=== PATIENT | male | born 1950 | race Caucasian/White ===

== ENCOUNTER 2016-10-31 13:43 | Emergency (ER) | payer MEDICARE, BC ==
--- NOTE | 2016-10-31 13:51 | Emergency Department Record ---
History of Present Illness - General Chief Complaint: Suture removal Stated Complaint: REMOVE STITCHES Time Seen by Provider: 10/31/16 13:50 Source: Patient Mode of arrival: Ambulatory Limitations: No limitations - History of Present Illness Initial Comments: The patient is here for suture removal. He denies any problems. Complaint: Suture/staple removal Onset/Timin -: Week(s) Initial Visit For: Laceration Returns Today for: Staple/stitch removal Symptoms Since Prior Visit: No new symptoms Associated Symptoms: None - Related Data Home Medications Medication Instructions Recorded Confirmed Last Taken Carbidopa/Levodopa 25Mg/100Mg 2 tab PO Q2H 10/24/16 10/31/16 Unknown [Sinemet] Carbidopa/Levodopa [Sinemet Cr 2 tab PO QHS 10/24/16 10/31/16 Unknown 25-100 Tablet] Clonazepam [Clonazepam] 2 mg PO DAILY 10/24/16 10/31/16 Unknown Omeprazole [Prilosec] 20 mg PO DAILY 10/24/16 10/31/16 Unknown Oxybutynin Chloride [Ditropan] 5 mg PO BID 10/24/16 10/31/16 Unknown Allergies Allergy/AdvReac Type Severity Reaction Status Date / Time bupropion HCl Allergy HIVES Verified 10/31/16 13:51 [From Wellbutrin] Travel Screening - Travel/Exposure Within Last 30 Days Have you traveled within the last 30 days?: No Past Medical History - SOCIAL HISTORY Smoking Status: Never smoker Alcohol Use: None Drug Use: None - RESPIRATORY Hx Respiratory Disorders: No - CARDIOVASCULAR Hx Cardio Disorders: No - NEURO Hx Neuro Disorders: Yes Hx Parkinson's Disease: Yes - GI Hx GI Disorders: Yes Hx Reflux: Yes Hx of Polyps: Yes - Hx Genitourinary Disorders: No - ENDOCRINE Hx Endocrine Disorders: No - MUSCULOSKELETAL Hx Musculoskeletal Disorders: Yes Comment:: hip pain/problems - PSYCH Hx Psych Problems: Yes Hx Depression: Yes (d/t Parkinon's) - HEMATOLOGY/ONCOLOGY Hx Hematology/Oncology Disorders: No Family Medical History Any Significant Family History?: Yes Hx Heart Disease: Father Hx HTN: Mother Physical Exam - General General Appearance: Alert, Oriented x3, Cooperative, No acute distress - Head Head exam: negative: Atraumatic (The R forehead sutures were removed with no difficulty.) Course Vital Signs 10/31/16 13:47 Temperature 97.5 F L Pulse Rate 69 Respiratory 18 Rate Blood Pressure 118/66 Pulse Ox 96 Disposition Disposition: Discharge Clinical Impression: Visit for suture removal Disposition: Home, Self-Care Condition: (1) Good Instructions: Stitches Removal (ED) Additional Instructions: Return to the ER for any problems. Forms: Patient Portal Access Time of Disposition: 14:00 Quality - Quality Measures Quality Measures: N/A - Blood Pressure Screening View Details: Yes Blood Pressure Classification: Normal BP Reading Systolic Measurement: 118 Diastolic Measurement: 66 Screening for High Blood Pressure: < Normal BP, F/U Not Required > [G8783] Normal BP Follow-up Interventions: No follow-up required
== END 2016-10-31 14:11 | disposition home or self-care (01) ==
LOC: ER 13:43
DX: Z48.02 Encounter for removal of sutures (principal)

== ENCOUNTER 2017-04-03 11:52 | Emergency (ER) | payer MEDICARE, OTHER ==
[2017-04-03] MEDS ORDERED: 0.9 % SODIUM CHLORIDE 1,000 ML BAG IV ONE (12:09)
--- NOTE | 2017-04-03 12:23 | Emergency Department Record ---
History of Present Illness - General Chief complaint: Male Urogenital Problem Stated complaint: UTI Time Seen by Provider: 04/03/17 12:06 Source: Patient, RN notes reviewed Mode of Arrival: Wheelchair - History of Present Illness Initial comments: decreased level of consciousness and [facility] and [facility] thought [facility] might be a [facility] and recommended he go to the ED. patient lethargic and has severe parkinson's disease and on synimet 1.5 pills every 2.5 hours and he stopped his night time synemet CR about one month ago. patient lethargic and wakes up with loud verbal commands and he stood up and got out of the car. Onset/Timin -: Days(s) Improves with: None Worsens with: None Other - Related Data Sexually active: No Allergies Allergy/AdvReac Type Severity Reaction Status Date / Time bupropion HCl Allergy HIVES Verified 04/03/17 11:56 [From Wellbutrin] Travel Screening - Travel/Exposure Within Last 30 Days Have you traveled within the last 30 days?: No - Travel/Exposure Within Last Year Have you traveled outside the [place] in the last year?: No - Additonal Travel Details Have you been exposed to anyone with a communicable illness?: No - Travel Symptoms Symptom Screening: None Review of Systems Reviewed: No additional complaints except as noted below Constitutional: Reports: As per HPI. Denies: Chills, Fever, Malaise, Night sweats, Weakness, Weight change Eyes: Reports: As per HPI. Denies: Eye discharge, Eye pain, Photophobia, Vision change ENT: Reports: As per HPI. Denies: Congestion, Dental pain, Ear pain, Epistaxis , Hearing loss, Throat pain Respiratory: Reports: As per HPI. Denies: Cough, Dyspnea, Hemoptysis, Stridor, Wheezes Cardiovascular: Reports: As per HPI. Denies: Arrhythmia, Chest pain, Dyspnea on exertion, Edema, Murmurs, Orthopnea, Palpitations, Paroxysmal nocturnal dyspnea, Rheumatic Fever, Syncope Endocrine: Reports: As per HPI. Denies: Fatigue, Heat or cold intolerance, Polydipsia, Polyuria Gastrointestinal: Reports: As per HPI. Denies: Abdominal pain, Constipation, Diarrhea, Hematemesis, Hematochezia, Melena, Nausea, Vomiting Genitourinary: Reports: As per HPI. Denies: Dysuria, Frequency, Hematuria, Incontinence, Retention, Testicular pain, Testicular mass, Urgency Musculoskeletal: Reports: As per HPI. Denies: Arthralgia, Back pain, Gout, Joint swelling, Myalgia, Neck pain Skin: Reports: As per HPI. Denies: Bruising, Change in color, Change in hair/ nails, Lesions, Pruritus, Rash Neurological: Reports: As per HPI. Denies: Abnormal gait, Confusion, Headache, Numbness, Paresthesias, Seizure, Tingling, Tremors, Vertigo, Weakness Psychiatric: Reports: As per HPI. Denies: Anxiety, Auditory hallucinations, Depression, Homicidal thoughts, Suicidal thoughts, Visual hallucinations Hematological/Lymphatic: Reports: As per HPI. Denies: Anemia, Blood Clots, Easy bleeding, Easy bruising, Swollen glands Past Medical History - SOCIAL HISTORY Smoking Status: Never smoker Alcohol Use: None Drug Use: None - RESPIRATORY Hx Respiratory Disorders: No - CARDIOVASCULAR Hx Cardio Disorders: No - NEURO Hx Neuro Disorders: Yes Hx Parkinson's Disease: Yes - GI Hx GI Disorders: Yes Hx Reflux: Yes Hx of Polyps: Yes - Hx Genitourinary Disorders: No - ENDOCRINE Hx Endocrine Disorders: No - MUSCULOSKELETAL Hx Musculoskeletal Disorders: Yes Comment:: hip pain/problems - PSYCH Hx Psych Problems: Yes Hx Depression: Yes (d/t Parkinon's) - HEMATOLOGY/ONCOLOGY Hx Hematology/Oncology Disorders: No Family Medical History Any Significant Family History?: Yes Hx Heart Disease: Father Hx HTN: Mother Physical Exam - General General Appearance: Alert, Oriented x3, Cooperative, Moderate distress - Head Head exam: Normal inspection - Eye Eye exam: Normal appearance, PERRL Pupils: Normal accommodation - ENT ENT exam: Normal external ear exam, Normal orophraynx, TM's normal bilaterally Ear exam: Normal external inspection. negative: External canal tenderness Nasal Exam: Normal inspection. negative: Discharge, Sinus tenderness Mouth exam: Normal external inspection, Tongue normal Teeth exam: Normal inspection. negative: Dental caries Throat exam: Normal inspection. negative: Tonsillar erythema, Tonsillar exudate - Neck Neck exam: Normal inspection, Full ROM. negative: Tenderness - Respiratory Respiratory exam: Normal lung sounds bilaterally. negative: Respiratory distress - Cardiovascular Cardiovascular Exam: Regular rate, Normal rhythm, Normal heart sounds - GI/Abdominal GI/Abdominal exam: Soft, Normal bowel sounds. negative: Tenderness - Rectal Rectal exam: Deferred - exam: Deferred - Extremities Extremities exam: Normal inspection, Full ROM, Normal capillary refill. negative: Tenderness - Back Back exam: Reports: Normal inspection, Full ROM. Denies: Muscle spasm, Rash noted, Tenderness - Neurological Neurological exam: Alert, Normal gait, Oriented X3, Reflexes normal - Psychiatric Psychiatric exam: Normal affect, Normal mood - Skin Skin exam: Dry, Intact, Normal color, Warm Course Vital Signs 04/03/17 11:58 Temperature 97.5 F L Pulse Rate 72 Respiratory 16 Rate Blood Pressure 125/58 Pulse Ox 98 - Reevaluation(s) Reevaluation #1: patient doing better and talking and back to his baseline per and talked about staying vs going home and will try outpatient therapy with increased fluid and giving the synimet every 4 hours and decreasing the nighttime klonapin to 1 mg at night 04/03/17 16:01 Reevaluation #2: patient is a DNR 04/03/17 16:09 Medical Decision Making - Lab Data Result diagrams: 04/03/17 12:35 04/03/17 12:35 Disposition Clinical Impression: Decreased level of consciousness, Parkinson disease, Dehydration Medication side effect Qualifiers: Encounter type: initial encounter Qualified Code(s): T88.7XXA - Unspecified adverse effect of drug or medicament, initial encounter Clinical Impression: (Ruled Out): Adverse reaction of antiepileptic Disposition: Home, Self-Care Condition: (2) Stable Instructions: Dehydration (ED) Additional Instructions: take sinemet every 4 hours and take only 1 mg of klonopin at night(one half of a 2 mg pill). drink more fluids Forms: Patient Portal Access Time of Disposition: 16:10 Quality - Quality Measures Quality Measures: N/A - Blood Pressure Screening Does Patient Have Any of the Following: No Blood Pressure Classification: Pre-Hypertensive BP Reading Systolic Measurement: 125 Diastolic Measurement: 58 Screening for High Blood Pressure: < Pre-Hypertensive BP, F/U Documented > [ G8950] Pre-Hypertensive Follow-up Interventions: Referral to alternative/primary care provider.
[2017-04-03 12:45] LABS: BASO % 0.2 % (0-6); EOS % 1.2 % (0-6); GRAN % 55.9 % (47-80); HEMOGLOBIN 15.8 gm/dl (14.0-18.0); LYMPH % 31.8 % (16-45); MEAN CELL VOLUME 98.9 fl (81-97); MEAN CORPUSCULAR HEMOGLOBIN 33.3 pg (27-33); MEAN CORPUSCULAR HGB CONC 33.6 g/dl (32-36); MEAN PLATELET VOLUME 9.7 fl (7.4-10.4); MONO % 10.9 % (0-9); PLATELET COUNT 225 K/uL (130-400); RED BLOOD COUNT 4.75 M/uL (4.40-5.70); RED CELL DISTRIBUTION WIDTH 13.4 % (11.5-14.5); WHITE BLOOD COUNT W/O DIFF 5.2 K/uL (4.2-12.2)
[2017-04-03 13:37] LABS: INR 1.14; PARTIAL THROMBOPLASTIN TIME 27.3 SECONDS (24.5-39.1); PROTHROMBIN TIME (PATIENT) 12.3 SECONDS (9.5-12.1)
[2017-04-03 13:37] LABS: URINE APPEARANCE CLEAR; URINE BILIRUBIN NEGATIVE (NEGATIVE); URINE BLOOD TRACE-I (NEGATIVE); URINE COLOR ORANGE; URINE GLUCOSE (UA) NEGATIVE (NEGATIVE); URINE KETONE TRACE (NEGATIVE); URINE LEUKOCYTE ESTERASE NEGATIVE (NEGATIVE); URINE NITRITE NEGATIVE (NEGATIVE); URINE PROTEIN NEGATIVE (NEGATIVE); URINE UROBILINOGEN 0.2 E.U./dL (0.20 - 1.00)
[2017-04-03 13:39] LABS: URINE BACTERIA NONE SEEN; URINE EPITHELIAL CELLS 0 - 2 (FEW); URINE MUCUS LIGHT; URINE WBC 0 - 2 (0-2/hpf)
[2017-04-03 14:16] LABS: BLOOD UREA NITROGEN 19 mg/dL (8-23); CREATININE 0.8 mg/dL (0.7-1.2); EST GLOMERULAR FILTRATION RATE > 60 mL/min
[2017-04-03 14:17] LABS: TOTAL PROTEIN 7.1 g/dL (6.6-8.7)
[2017-04-03 14:18] LABS: GLUCOSE,RANDOM 97 mg/dL (74-109)
[2017-04-03 14:19] LABS: LACTIC ACID 1.3 mmol/L (0.5-2.2)
[2017-04-03 14:21] LABS: ALB/GLOB RATIO 1.5 (1.1-1.8); ALBUMIN 4.3 g/dL (4.0-5.0); ALKALINE PHOSPHATASE 55 U/L (40-129); ALT/SGPT < 5 U/L (<41); AST/SGOT 13 U/L (10.0-50.0)
[2017-04-03 14:33] LABS: ACETAMINOPHEN < 5.0 ug/mL (10.0-30.0)
--- NOTE | 2017-04-03 18:11 | RADIOLOGY REPORT ---
EXAM: CHEST AP or PA ONLY HISTORY: DIFFICULTY IN BREATHING. TECHNIQUE: A portable AP upright view of the chest was performed. FINDINGS: Heart size is normal. No pulmonary vascular congestion. No infiltrate or pleural effusion. IMPRESSION: NO ACUTE DISEASE PROCESS. JOB NUMBER: [id number] MTDD
--- NOTE | 2017-04-03 18:17 | CT SCAN REPORT ---
EXAM: CT SCAN HEAD WO CONTRAST HISTORY: DECREASED LEVEL OF CONSCIOUSNESS. TECHNIQUE: Sequential axial images were obtained from the foramen magnum to the vertex without contrast administration. FINDINGS: Age-appropriate cortical atrophy. There is periventricular small vessel ischemia. No large territorial infarct, hemorrhage, mass effect, or midline shift. Stimulator device in the thalamus. No complicating process. IMPRESSION: AGE-APPROPRIATE CORTICAL ATROPHY WITH PERIVENTRICULAR SMALL VESSEL ISCHEMIA. [facility]BER: [id number] [facility]
--- NOTE | 2017-04-03 18:21 | CT SCAN REPORT ---
EXAM: CT SCAN CERVICAL SPINE WO CONTRAST HISTORY: FALL. COMPARISON: 10/24/2016. TECHNIQUE: Sequential axial images were obtained through the cervical spine without intravenous contrast administration. Sagittal and coronal reformatted images were performed. FINDINGS: There is a remote mild superior endplate deformity of C3. There is degenerative change at the C5-6 and C6-7 levels. No evidence of acute fracture, subluxation, or perched facet. IMPRESSION: 1. NO ACUTE PROCESS. 2. MILD DEGENERATIVE CHANGE, MOST PRONOUNCED AT C5-6 AND C6-7 LEVELS. [facility]BER: [id number] [facility]
== END 2017-04-03 17:42 | disposition home or self-care (01) ==
LOC: ER 11:52
DX: T42.8X5A Adverse effect of antiparkinsonism drugs and other central muscle-tone depressants, initial encounter (principal); R41.82 Altered mental status, unspecified; E86.0 Dehydration; R53.83 Other fatigue; R06.00 Dyspnea, unspecified; G20 Parkinson's disease; M47.892 Other spondylosis, cervical region
CPT/HCPCS: 99284 ×2; 83605; 85025; 85730; 85610; 80053; 81001; 71010; 72125; 70450; G0480 ×2; 80320; 80329

== ENCOUNTER 2017-04-07 10:00 | Emergency (ER) | payer MEDICARE, OTHER ==
[2017-04-07] MEDS ORDERED: 0.9 % SODIUM CHLORIDE 1000ML 1,000 ML IV SCH (10:15)
--- NOTE | 2017-04-07 10:19 | Emergency Department Record ---
History of Present Illness - General Chief Complaint: Altered Mental Status Stated Complaint: ALTERED MENTAL STATE Time Seen by Provider: 04/07/17 10:13 Source: Family Mode of Arrival: Wheelchair Limitations: Altered mental status - History of Present Illness Initial Comments: 67 yo male returns to ED after being seen several days ago for worsening confusion and aggression this morning. Patient's SO reports the patient was seen 3 days ago, diagnosed with dehydration, symptoms improved following IVFs. Patient was doing well until last night, this morning was less responsive, found to be harming family cat and aggressive toward family members. Patient's Klonopin was recently decreased. MD Complaint: Altered mental status Onset/Timin -: Hour(s) Severity: Moderate Consistency: Constant Context: Change in medication Associated Symptoms: Denies other symptoms - Cr Coma Scale Eye Response: (4) Open spontaneously Motor Response: (5) Localizes to pain Verbal Response: (4) Confused conversation Cr Total: 13 - Related Data Allergies Allergy/AdvReac Type Severity Reaction Status Date / Time bupropion HCl Allergy HIVES Verified 04/07/17 10:05 [From Wellbutrin] Travel Screening - Travel/Exposure Within Last 30 Days Have you traveled within the last 30 days?: No Review of Systems ROS unobtainable: Due to mental status Neurological: Reports: Confusion Past Medical History - SOCIAL HISTORY Smoking Status: Never smoker Drug Use: None - RESPIRATORY Hx Respiratory Disorders: No - CARDIOVASCULAR Hx Cardio Disorders: No - NEURO Hx Neuro Disorders: Yes Hx Parkinson's Disease: Yes - GI Hx GI Disorders: Yes Hx Reflux: Yes Hx of Polyps: Yes - Hx Genitourinary Disorders: No - ENDOCRINE Hx Endocrine Disorders: No - MUSCULOSKELETAL Hx Musculoskeletal Disorders: Yes Comment:: hip pain/problems - PSYCH Hx Psych Problems: Yes Hx Depression: Yes (d/t Parkinon's) - HEMATOLOGY/ONCOLOGY Hx Hematology/Oncology Disorders: No Family Medical History Hx Heart Disease: Father Hx HTN: Mother Physical Exam - General General Appearance: Alert, Moderate distress, Other (patient is drooling, unable to stand, non-cooperative with examination) Limitations: Altered mental status - Head Head exam: Atraumatic, Normocephalic, Normal inspection Head exam detail: negative: Abrasion, Contusion, Martínez's sign, General tenderness, Hematoma, Laceration - Eye Eye exam: Normal appearance. negative: Conjunctival injection, Periorbital swelling, Periorbital tenderness, Scleral icterus - ENT Ear exam: negative: Auricular hematoma, Auricular trauma Nasal Exam: negative: Active bleeding, Discharge, Foreign body Mouth exam: negative: Drooling, Laceration, Tongue elevation - Neck Neck exam: Normal inspection. negative: Meningismus, Tenderness - Respiratory Respiratory exam: Normal lung sounds bilaterally. negative: Rales, Respiratory distress, Rhonchi - Cardiovascular Cardiovascular Exam: Regular rate, Normal rhythm, Normal heart sounds - GI/Abdominal GI/Abdominal exam: Soft. negative: Rebound, Rigid, Tenderness - Rectal Rectal exam: Deferred - exam: Deferred - Extremities Extremities exam: negative: Pedal edema, Tenderness - Back Back exam: Denies: CVA tenderness (R), CVA tenderness (L) - Neurological Neurological exam: Other (awake, does not respond to voice) - Psychiatric Psychiatric exam: Other (cannot assess) - Skin Skin exam: Normal color. negative: Abrasion Type of lesion: negative: abrasion Course - Reevaluation(s) Reevaluation #1: 04/07/17 11:15 CXR: Stable, no acute process. CT Head: Stable, no acute process. Labs reviewed and are grossly unremarkable for an acute process. UA/UDS pending. Reevaluation #2: 04/07/17 11:29 EKG: NSR 82 Normal axis, normal intervals No acute ST-T wave changes Reevaluation #3: 04/07/17 12:34 UA reviewed and appears c/w infection. Rocephin initiated, will transfer following discussion with admitting provider to [facility] for further evaluation. Medical Decision Making - Lab Data Result diagrams: 04/07/17 10:29 04/07/17 10:29 Disposition Disposition: Transfer Clinical Impression: Dehydration UTI (urinary tract infection) Qualifiers: Urinary tract infection type: acute cystitis Hematuria presence: without hematuria Qualified Code(s): N30.00 - Acute cystitis without hematuria Altered mental status Qualifiers: Altered mental status type: unspecified Qualified Code(s): R41.82 - Altered mental status, unspecified Disposition: Acute Care Hospital Transfer Transfer To: [facility] Reason For Transfer: Altered mental status Accepting Physician: Byam Time Discussed w/Accepting Physician: 13:00 Condition: (2) Stable Forms: Patient Portal Access Time of Disposition: 13:00 Quality - Quality Measures Quality Measures: N/A - Blood Pressure Screening Does Patient Have Any of the Following: No Blood Pressure Classification: Hypertensive Reading Systolic Measurement: 144 Diastolic Measurement: 73 Screening for High Blood Pressure: < First Hypertensive BP, F/U Documented > [ G8950] First Hypertensive Follow-up Interventions: Referral to alternative/primary care provider.
[2017-04-07 10:34] LABS: BASO % 0.3 % (0-6); EOS % 0.2 % (0-6); GRAN % 65.6 % (47-80); HEMATOCRIT 47.3 % (42.0-52.0); LYMPH % 22.7 % (16-45); MEAN CELL VOLUME 99.2 fl (81-97); MEAN CORPUSCULAR HEMOGLOBIN 33.5 pg (27-33); MEAN CORPUSCULAR HGB CONC 33.8 g/dl (32-36); MEAN PLATELET VOLUME 9.4 fl (7.4-10.4); MONO % 11.2 % (0-9); PLATELET COUNT 258 K/uL (130-400); RED BLOOD COUNT 4.77 M/uL (4.40-5.70); RED CELL DISTRIBUTION WIDTH 13.4 % (11.5-14.5); WHITE BLOOD COUNT W/O DIFF 6.3 K/uL (4.2-12.2)
[2017-04-07 10:52] LABS: ACETAMINOPHEN < 5.0 ug/mL (10.0-30.0); SALICYLATE < 0.3 mg/dL (2.8-20)
[2017-04-07 11:03] LABS: BLOOD UREA NITROGEN 23 mg/dL (8-23); CREATININE 0.9 mg/dL (0.7-1.2); EST GLOMERULAR FILTRATION RATE > 60 mL/min; TOTAL PROTEIN 7.4 g/dL (6.6-8.7)
[2017-04-07 11:05] LABS: GLUCOSE,RANDOM 102 mg/dL (74-109)
[2017-04-07 11:08] LABS: ALB/GLOB RATIO 1.5 (1.1-1.8); ALBUMIN 4.4 g/dL (4.0-5.0); ALKALINE PHOSPHATASE 55 U/L (40-129); ALT/SGPT < 5 U/L (<41); AST/SGOT 20 U/L (10.0-50.0)
[2017-04-07 11:11] LABS: AMMONIA 24 umol/L (16.0-60.0)
[2017-04-07 11:19] LABS: THYROID STIMULATING HORMONE 1.92 uIU/mL (0.270-4.20)
[2017-04-07] MEDS ORDERED: LIDOCAINE UROJECT 10 ML APPL MM ONE (11:47)
[2017-04-07 12:15] LABS: URINE APPEARANCE CLEAR; URINE BILIRUBIN NEGATIVE (NEGATIVE); URINE BLOOD NEGATIVE (NEGATIVE); URINE COLOR YELLOW; URINE GLUCOSE (UA) NEGATIVE (NEGATIVE); URINE KETONE TRACE (NEGATIVE); URINE LEUKOCYTE ESTERASE NEGATIVE (NEGATIVE); URINE NITRITE POSITIVE (NEGATIVE); URINE PROTEIN NEGATIVE (NEGATIVE); URINE UROBILINOGEN 0.2 E.U./dL (0.20 - 1.00)
[2017-04-07 12:19] LABS: AMPHETAMINE SCREEN URINE NOT DETECTED; BARBITURATE SCREEN URINE NOT DETECTED; BENZODIAZEPINE SCREEN URINE NOT DETECTED; COCAINE SCREEN URINE NOT DETECTED; METHADONE SCREEN URINE NOT DETECTED; METHAMPHETAMINE SCREEN NOT DETECTED; OPIATE SCREEN URINE NOT DETECTED; OXYCODONE SCREEN URINE NOT DETECTED; PHENCYCLIDINE SCREEN URINE NOT DETECTED; PROPOXYPHENE SCREEN URINE NOT DETECTED; THC SCREEN URINE NOT DETECTED; TRICYCLIC ANTIDEPRESSANT SCRN NOT DETECTED
[2017-04-07 12:22] LABS: URINE BACTERIA 2+; URINE EPITHELIAL CELLS NONE SEEN (FEW); URINE RBC NONE SEEN (NONE SEEN); URINE WBC 0 - 2 (0-2/hpf)
[2017-04-07] MEDS ORDERED: CEFTRIAXONE SODIUM 1 GM in 0.9 % SODIUM CHLORIDE 100ML 100 ML IVPB ONE (12:36)
--- NOTE | 2017-04-09 00:20 | RADIOLOGY REPORT ---
EXAM: CHEST 2 VIEWS HISTORY: DECREASED LEVEL OF CONSCIOUSNESS. CONFUSION AND ALTERED MENTAL STATUS. TECHNIQUE: AP and lateral upright views of the chest were obtained. COMPARISON: 04/03/2017. FINDINGS: An electrical stimulator device is present projecting over the left anterior chest. The leads extend into the neck region. The heart, mediastinum, and pulmonary vasculature are normal. There are no acute infiltrates or effusions. There is no pneumothorax. A calcified granuloma is present within the left mid lung. The bones appear intact. IMPRESSION: STABLE CHEST WITH NO ACUTE PROCESS IDENTIFIED. JOB NUMBER: [id number] MTDD
--- NOTE | 2017-04-09 00:25 | CT SCAN REPORT ---
EXAM: CT SCAN HEAD WO CONTRAST HISTORY: MENTAL STATUS CHANGES. CONFUSION AND DECREASED LEVEL OF CONSCIOUSNESS. HISTORY OF BRAIN STIMULATOR DEVICE PLACEMENT. TECHNIQUE: Standard CT imaging of the brain was performed in the axial plane without contrast. Additional coronal and sagittal reformatted images were also performed. COMPARISON: 04/03/2017. ENCOUNTER: Not applicable. FINDINGS: Electrical stimulator leads are in place extending from the superior frontal regions bilaterally into the thalami bilaterally. These are unchanged. The ventricles and subarachnoid spaces are normal for the patient's age. There is no mass, mass effect, intracranial hemorrhage, visible acute infarct, or abnormal extraaxial fluid. The skull is intact. The orbits, sinuses, and mastoids are normal. IMPRESSION: 1. NO ACUTE INTRACRANIAL ABNORMALITY. 2. STABLE ELECTRICAL STIMULATOR LEADS EXTENDING TO THE THALAMI BILATERALLY. JOB NUMBER: [id number] MTDD
== END 2017-04-07 14:38 | disposition short-term general hospital (02) ==
LOC: ER 10:00
DX: R41.82 Altered mental status, unspecified (principal); E86.0 Dehydration; N30.00 Acute cystitis without hematuria; G20 Parkinson's disease
CPT/HCPCS: 99285 ×2; 96374; 96361; 82140; 85025; 80053; 81001; 84443; 80305; 84484; 71020; 70450; 93005; 93010; G0480 ×2; 80329; J7030

== ENCOUNTER 2017-08-07 12:41 | Emergency (ER) | payer MEDICARE ==
--- NOTE | 2017-08-07 13:03 | Emergency Department Record ---
History of Present Illness - General Chief complaint: Fatigue and Weakness Stated complaint: SLEEPING ALOT,NOT EATING OR DRINKING Time Seen by Provider: 08/07/17 12:56 Source: Patient, Family ( gives the entire history), RN notes reviewed - History of Present Illness Initial comments: pateint fell last night and not responding as usual and he he has advanced parkinson's disease and not communicating and he has a brain stimulator for his parkinson's disease. found him on the floor and he is not acting like himself. - Related Data Allergies Allergy/AdvReac Type Severity Reaction Status Date / Time bupropion HCl Allergy HIVES Verified 08/07/17 13:01 [From Wellbutrin] Past Medical History - SOCIAL HISTORY Smoking Status: Never smoker Drug Use: None - RESPIRATORY Hx Respiratory Disorders: No - CARDIOVASCULAR Hx Cardio Disorders: No - NEURO Hx Neuro Disorders: Yes Hx Parkinson's Disease: Yes - GI Hx GI Disorders: Yes Hx Reflux: Yes Hx of Polyps: Yes - Hx Genitourinary Disorders: No - ENDOCRINE Hx Endocrine Disorders: No - MUSCULOSKELETAL Hx Musculoskeletal Disorders: Yes Comment:: hip pain/problems - PSYCH Hx Psych Problems: Yes Hx Depression: Yes (d/t Parkinon's) - HEMATOLOGY/ONCOLOGY Hx Hematology/Oncology Disorders: No Family Medical History Hx Heart Disease: Father Hx HTN: Mother Physical Exam - General General Appearance: Alert, Oriented x3, Cooperative, Mild distress Limitations: Altered mental status - Head Head exam: Normal inspection - Eye Eye exam: Normal appearance, PERRL Pupils: Normal accommodation - ENT ENT exam: Normal exam, Mucous membranes moist, Normal external ear exam, Normal orophraynx, TM's normal bilaterally Ear exam: Normal external inspection. negative: External canal tenderness Nasal Exam: Normal inspection. negative: Discharge, Sinus tenderness Mouth exam: Normal external inspection, Tongue normal Teeth exam: Normal inspection. negative: Dental caries Throat exam: Normal inspection. negative: Tonsillar erythema, Tonsillar exudate - Neck Neck exam: Normal inspection, Full ROM. negative: Tenderness - Respiratory Respiratory exam: Normal lung sounds bilaterally. negative: Respiratory distress - Cardiovascular Cardiovascular Exam: Regular rate, Normal rhythm, Normal heart sounds - GI/Abdominal GI/Abdominal exam: Soft, Normal bowel sounds. negative: Tenderness - Rectal Rectal exam: Deferred - exam: Deferred - Extremities Extremities exam: Normal inspection, Full ROM, Normal capillary refill. negative: Tenderness - Back Back exam: Reports: Normal inspection, Full ROM. Denies: Muscle spasm, Rash noted, Tenderness - Neurological Neurological exam: Alert, Normal gait, Oriented X3, Reflexes normal - Psychiatric Psychiatric exam: Agitated, Normal affect, Normal mood, Other (patient is aggressive to his ) - Skin Skin exam: Dry, Intact, Normal color, Warm Course patient initially when he came in to the ED he was stiff and not moving much and then after IV fluids he started waking up and was able to stand and he tries to express himself by pointing and gesturig. It seems like he may be hallucinating. - Reevaluation(s) Reevaluation #1: states almost moving back to baseline and he is more hyper.Discuseed case with [facility] ED Doctor and he doesn't have a qualifing diagnosis for admission and they are full. 08/07/17 15:48 08/07/17 16:22 Reevaluation #2: discussed case with his PA Kendra Liu and she said she would have the social welfare administrator contact the [employer] to increase her resouces at home to take care of him. has the son who gives him some support but not much. Patient is back to his baseline but seems a little aggitated wo will decrease the sinomet to 1.5 pills every 3 hours. and to take the klonopin 1 mg twice a day. 08/07/17 16:17 Medical Decision Making - Lab Data Result diagrams: 08/07/17 13:00 08/07/17 13:00 Disposition Clinical Impression: Agitation, Parkinson disease, symptomatic Disposition: Home, Self-Care Condition: (2) Stable Instructions: Parkinson Disease (ED) Additional Instructions: follow up with primary as scheduled follow up with Kendra Liu as scheduled in 8 days Forms: Patient Portal Access Time of Disposition: 16:23 Quality - Quality Measures Quality Measures: N/A - Blood Pressure Screening Does Patient Have Any of the Following: No Blood Pressure Classification: Pre-Hypertensive BP Reading Systolic Measurement: 132 Diastolic Measurement: 73 Screening for High Blood Pressure: < Pre-Hypertensive BP, F/U Documented > [ G8950] Pre-Hypertensive Follow-up Interventions: Referral to alternative/primary care provider.
[2017-08-07 13:17] LABS: BASO % 0.4 % (0-6); EOS % 0.7 % (0-6); HEMATOCRIT 48.2 % (42.0-52.0); HEMOGLOBIN 16.1 gm/dl (14.0-18.0); LYMPH % 33.4 % (16-45); MEAN CORPUSCULAR HEMOGLOBIN 33.8 pg (27-33); MEAN CORPUSCULAR HGB CONC 33.4 g/dl (32-36); MEAN PLATELET VOLUME 8.8 fl (7.4-10.4); MONO % 12.5 % (0-9); PLATELET COUNT 292 K/uL (130-400); RED BLOOD COUNT 4.77 M/uL (4.40-5.70); RED CELL DISTRIBUTION WIDTH 13.2 % (11.5-14.5); WHITE BLOOD COUNT W/O DIFF 5.4 K/uL (4.2-12.2)
[2017-08-07 13:25] LABS: BLOOD UREA NITROGEN 22 mg/dL (8-23); EST GLOMERULAR FILTRATION RATE > 60 mL/min
[2017-08-07 13:26] LABS: TOTAL PROTEIN 7.4 g/dL (6.6-8.7)
[2017-08-07 13:28] LABS: GLUCOSE,RANDOM 98 mg/dL (74-109); INR 1.1; PARTIAL THROMBOPLASTIN TIME 29.6 SECONDS (24.5-39.1); PROTHROMBIN TIME (PATIENT) 11.8 SECONDS (9.5-12.1)
[2017-08-07 13:31] LABS: ALBUMIN 4.5 g/dL (4.0-5.0); ALKALINE PHOSPHATASE 54 U/L (40-129); ALT/SGPT < 5 U/L (<41); AST/SGOT 16 U/L (10.0-50.0)
[2017-08-07 13:34] LABS: ACETAMINOPHEN < 5.0 ug/mL (10.0-30.0); ALB/GLOB RATIO 1.6 (1.1-1.8); SALICYLATE < 0.3 mg/dL (2.8-20)
[2017-08-07 14:17] LABS: URINE APPEARANCE CLEAR; URINE BILIRUBIN NEGATIVE (NEGATIVE); URINE BLOOD NEGATIVE (NEGATIVE); URINE COLOR YELLOW; URINE GLUCOSE (UA) NEGATIVE (NEGATIVE); URINE KETONE TRACE (NEGATIVE); URINE LEUKOCYTE ESTERASE NEGATIVE (NEGATIVE); URINE NITRITE NEGATIVE (NEGATIVE); URINE PROTEIN NEGATIVE (NEGATIVE)
[2017-08-07] MEDS: LIDOCAINE UROJECT 10 ML APPL MM ONE (14:17)
[2017-08-07] MEDS: 0.9 % SODIUM CHLORIDE 1000ML 1,000 ML IV ONE (14:30)
--- NOTE | 2017-08-07 16:30 | Emergency Department Record ---
History of Present Illness - General Chief complaint: Fatigue and Weakness Stated complaint: SLEEPING ALOT,NOT EATING OR DRINKING Time Seen by Provider: 08/07/17 12:56 Source: Patient, Family ( gives the entire history), RN notes reviewed Mode of Arrival: Ambulatory Limitations: Altered mental status - History of Present Illness Onset/Timin -: Hour(s) Improves with: None Worsens with: None Associated Symptoms: Other - [place] Coma Scale Eye Response: (1) No response Motor Response: (4) Withdraws to pain Verbal Response: (4) Confused conversation Cr Total: 9 - Related Data Allergies Allergy/AdvReac Type Severity Reaction Status Date / Time bupropion HCl Allergy HIVES Verified 08/07/17 13:01 [From Wellbutrin] Travel Screening - Travel/Exposure Within Last 30 Days Have you traveled within the last 30 days?: No - Travel/Exposure Within Last Year Have you traveled outside the [place] in the last year?: No - Additonal Travel Details Have you been exposed to anyone with a communicable illness?: No - Travel Symptoms Symptom Screening: None Past Medical History - SOCIAL HISTORY Smoking Status: Never smoker Drug Use: None - RESPIRATORY Hx Respiratory Disorders: No - CARDIOVASCULAR Hx Cardio Disorders: No - NEURO Hx Neuro Disorders: Yes Hx Parkinson's Disease: Yes - GI Hx GI Disorders: Yes Hx Reflux: Yes Hx of Polyps: Yes - Hx Genitourinary Disorders: No - ENDOCRINE Hx Endocrine Disorders: No - MUSCULOSKELETAL Hx Musculoskeletal Disorders: Yes Comment:: hip pain/problems - PSYCH Hx Psych Problems: Yes Hx Depression: Yes (d/t Parkinon's) - HEMATOLOGY/ONCOLOGY Hx Hematology/Oncology Disorders: No Family Medical History Hx Heart Disease: Father Hx HTN: Mother Physical Exam - General Limitations: Altered mental status Course Vital Signs 08/07/17 08/07/17 12:43 14:31 Temperature 98.1 F Pulse Rate 70 Pulse Rate [ 80 Pulse Ox Probe] Respiratory 18 16 Rate Blood Pressure 132/73 Blood Pressure 137/80 [Right Arm] Pulse Ox 98 97 Medical Decision Making - Lab Data Result diagrams: 08/07/17 13:00 08/07/17 13:00 Lab Results 08/07/17 08/07/17 08/07/17 Range/Units 13:00 13:00 13:00 WBC 5.4 (4.2-12.2) K/uL RBC 4.77 (4.40-5.70) M/uL Hgb 16.1 (14.0-18.0) gm/dl Hct 48.2 (42.0-52.0) % MCV 101.0 H (81-97) fl MCH 33.8 H (27-33) pg MCHC 33.4 (32-36) g/dl RDW 13.2 (11.5-14.5) % Plt Count 292 (130-400) K/uL MPV 8.8 (7.4-10.4) fl Gran % 53.0 (47-80) % Lymphocytes % 33.4 (16-45) % Monocytes % 12.5 H (0-9) % Eosinophils % 0.7 (0-6) % Basophils % 0.4 (0-6) % PT 11.8 (9.5-12.1) SECONDS INR 1.1 APTT 29.6 (24.5-39.1) SECONDS Sodium 143 (136-145) mmol/L Potassium 3.9 (3.4-4.5) mmol/L Chloride 99 (98-107) mmol/L Carbon Dioxide 31.0 H (22-29) mmol/L Anion Gap 13.0 (7-16) BUN 22 (8-23) mg/dL Creatinine 1.0 (0.7-1.2) mg/dL Estimated GFR > 60 mL/min Random Glucose 98 (74-109) mg/dL Calcium 9.1 (8.8-10.2) mg/dL Total Bilirubin 0.90 (0.2-1.0) mg/dL AST 16 (10.0-50.0) U/L ALT < 5 (<41) U/L Alkaline Phosphatase 54 (40-129) U/L Total Protein 7.4 (6.6-8.7) g/dL Albumin 4.5 (4.0-5.0) g/dL Globulin 2.9 (1.4-4.8) gm/dL Albumin/Globulin Ratio 1.6 (1.1-1.8) Urine Color Urine Appearance Urine pH (5.0-8.0) Ur Specific [place] (1.002-1.030) Urine Protein (NEGATIVE) Urine Glucose (UA) (NEGATIVE) Urine Ketones (NEGATIVE) Urine Blood (NEGATIVE) Urine Nitrite (NEGATIVE) Urine Bilirubin (NEGATIVE) Urine Urobilinogen (0.20 - 1.00) E.U./dL Ur Leukocyte Esterase (NEGATIVE) Salicylates < 0.3 L (2.8-20) mg/dL Acetaminophen < 5.0 L (10.0-30.0) ug/mL Ethyl Alcohol 0.000 (0-0.010) g/dL 08/07/17 Range/Units 14:10 WBC (4.2-12.2) K/uL RBC (4.40-5.70) M/uL Hgb (14.0-18.0) gm/dl Hct (42.0-52.0) % MCV (81-97) fl MCH (27-33) pg MCHC (32-36) g/dl RDW (11.5-14.5) % Plt Count (130-400) K/uL MPV (7.4-10.4) fl Gran % (47-80) % Lymphocytes % (16-45) % Monocytes % (0-9) % Eosinophils % (0-6) % Basophils % (0-6) % PT (9.5-12.1) SECONDS INR APTT (24.5-39.1) SECONDS Sodium (136-145) mmol/L Potassium (3.4-4.5) mmol/L Chloride (98-107) mmol/L Carbon Dioxide (22-29) mmol/L Anion Gap (7-16) BUN (8-23) mg/dL Creatinine (0.7-1.2) mg/dL Estimated GFR mL/min Random Glucose (74-109) mg/dL Calcium (8.8-10.2) mg/dL Total Bilirubin (0.2-1.0) mg/dL AST (10.0-50.0) U/L ALT (<41) U/L Alkaline Phosphatase (40-129) U/L Total Protein (6.6-8.7) g/dL Albumin (4.0-5.0) g/dL Globulin (1.4-4.8) gm/dL Albumin/Globulin Ratio (1.1-1.8) Urine Color Yellow Urine Appearance Clear Urine pH 6.5 (5.0-8.0) Ur Specific [place] 1.025 (1.002-1.030) Urine Protein Negative (NEGATIVE) Urine Glucose (UA) Negative (NEGATIVE) Urine Ketones Trace H (NEGATIVE) Urine Blood Negative (NEGATIVE) Urine Nitrite Negative (NEGATIVE) Urine Bilirubin Negative (NEGATIVE) Urine Urobilinogen 1.0 (0.20 - 1.00) E.U./dL Ur Leukocyte Esterase Negative (NEGATIVE) Salicylates (2.8-20) mg/dL Acetaminophen (10.0-30.0) ug/mL Ethyl Alcohol (0-0.010) g/dL Disposition Clinical Impression: Agitation, Parkinson disease, symptomatic Disposition: Home, Self-Care Condition: (2) Stable Instructions: Parkinson Disease (ED) Additional Instructions: follow up with primary as scheduled follow up with Kendra Liu as scheduled in 8 days decrease sinomet 1.5 pills every 3 hous take klonopin 1 mg twice a day Forms: Patient Portal Access Time of Disposition: 16:29 Quality - Quality Measures Quality Measures: N/A - Blood Pressure Screening Does Patient Have Any of the Following: No Blood Pressure Classification: Pre-Hypertensive BP Reading Systolic Measurement: 132 Diastolic Measurement: 73 Screening for High Blood Pressure: < Pre-Hypertensive BP, F/U Documented > [ G8950] Pre-Hypertensive Follow-up Interventions: Referral to alternative/primary care provider.
--- NOTE | 2017-08-08 09:30 | CT SCAN REPORT ---
EXAM: EMERGENCY HEAD CT WITHOUT CONTRAST HISTORY: PATIENT HAS PARKINSON'S, FELL WITH LOSS OF CONSCIOUSNESS. TECHNIQUE: Axial CT scan of the head was performed without IV contrast. Comparison: Head CT 04/07/17. Encounter: Initial. FINDINGS: The previously described bilateral electrical stimulator leads extending into the region of the thalami bilaterally are again seen and appear unchanged n position compared with the prior study, entering from the high bifrontal region as before. No definite acute intracranial hemorrhage identified. No focal mass effect or midline shift apparent. There is probably an osteoma along the anterior wall of the left frontal sinus also present previously. This measures about 1 cm in maximum diameter. No depressed calvarial fracture is evident. IMPRESSION: 1. NO DEFINITE ACUTE INTRACRANIAL HEMORRHAGE OR FOCAL MASS EFFECT IDENTIFIED. 2. APPARENT BILATERAL ELECTRICAL STIMULATOR WIRES IN PLACE BEFORE. 3. 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 JOB NUMBER: [id number] MTDD
--- NOTE | 2017-08-08 09:57 | CT SCAN REPORT ---
EXAM: CT OF THE CERVICAL SPINE WITHOUT CONTRAST HISTORY: PATIENT FELL WITH DECREASED LEVEL OF CONSCIOUSNESS. TECHNIQUE: Axial CT scan of the entire cervical spine was performed without IV contrast. Comparison: Cervical spine CT dated 04/03/17. Encounter: Initial. FINDINGS: No apical pneumothorax is evident. No definite fracture of the cervical spine identified. No prevertebral soft tissue swelling evident. Narrowing of the fifth and sixth cervical interspaces with associated hypertrophic spurring. There is also prominent degenerative change at the odontoid-anterior arch of C1 articulation. Some facet joint arthropathy is present bilaterally. IMPRESSION: 1. NO DEFINITE FRACTURE OR PREVERTEBRAL SOFT TISSUE SWELLING SEEN IN THE CERVICAL SPINE. 2. MULTILEVEL DEGENERATIVE CHANGE IN THE CERVICAL SPINE DESCRIBED ABOVE. JOB NUMBER: [id number] [facility]
--- NOTE | 2017-08-08 10:11 | RADIOLOGY REPORT ---
EXAM: AP CHEST HISTORY: PATIENT FELL. TECHNIQUE: A single AP semi-upright view of the chest was obtained. Comparison: Two view chest 04/07/17. Encounter: Initial. FINDINGS: The heart size is within normal limits. Battery pack with electrodes extending up into the left side of the neck as before. Somewhat shallow inspiration taken. No definite acute infiltrate seen and no pleural effusion or pneumothorax evident. IMPRESSION: 1. SHALLOW INSPIRATION. NO ACUTE INFILTRATE EVIDENT. 2. BATTERY PACK OVERLYING THE LEFT MID CHEST ALSO PRESENT PREVIOUSLY WITH ELECTRODE LEADS EXTENDING UP INTO THE LEFT SIDE OF THE NECK BEFORE. JOB NUMBER: [id number] MTDD
== END 2017-08-07 16:45 | disposition home or self-care (01) ==
LOC: ER 12:41
DX: R45.1 Restlessness and agitation (principal); G20 Parkinson's disease; R53.1 Weakness; R41.82 Altered mental status, unspecified; R53.83 Other fatigue; W18.30XA Fall on same level, unspecified, initial encounter; Y92.009 Unspecified place in unspecified non-institutional (private) residence as the place of occurrence of the external cause; Z91.81 History of falling
CPT/HCPCS: 99284 ×2; 96360; 96361; 85025; 85730; 85610; 80053; 81003; 71045; 72125; 70450; 93005; 93010; G0480 ×3; 80320; 80329

== ENCOUNTER 2017-08-13 11:48 | Inpatient (IN) | payer MEDICARE ==
[2017-08-13] MEDS ORDERED: 0.9 % SODIUM CHLORIDE 1000ML 1,000 ML IV SCH (12:00)
--- NOTE | 2017-08-13 12:05 | Emergency Department Record ---
History of Present Illness - General Chief Complaint: Altered Mental Status Stated Complaint: AGGITATION Time Seen by Provider: 08/13/17 11:57 Source: Patient, Family Mode of Arrival: EMS Limitations: Altered mental status - History of Present Illness Initial Comments: 67 yo male presents to ED for evaluation of alteration in mental status that began 1 week ago. Patient was seen in ED at that time, received IVFs and symptoms im,proved. Patient's however reports that the patient has been worsening following his ED visit and has become more agitated at home, will not eat or drink, and will not take his medications. SO denies any recent illness, fevers, chills, or cough symptoms. MD Complaint: Altered mental status Onset/Timin -: Week(s) Severity: Moderate Consistency: Constant Context: History of similar presentation Associated Symptoms: Denies other symptoms - Cr Coma Scale Eye Response: (1) No response Motor Response: (4) Withdraws to pain Verbal Response: (1) No verbal response Cr Total: 6 - Related Data Allergies Allergy/AdvReac Type Severity Reaction Status Date / Time bupropion HCl Allergy HIVES Verified 08/13/17 11:53 [From Wellbutrin] Review of Systems ROS unobtainable: Due to mental status Past Medical History - SOCIAL HISTORY Smoking Status: Never smoker Drug Use: None - RESPIRATORY Hx Respiratory Disorders: No - CARDIOVASCULAR Hx Cardio Disorders: No - NEURO Hx Neuro Disorders: Yes Hx Parkinson's Disease: Yes - GI Hx GI Disorders: Yes Hx Reflux: Yes Hx of Polyps: Yes - Hx Genitourinary Disorders: No - ENDOCRINE Hx Endocrine Disorders: No - MUSCULOSKELETAL Hx Musculoskeletal Disorders: Yes Comment:: hip pain/problems - PSYCH Hx Psych Problems: Yes Hx Depression: Yes (d/t Parkinon's) - HEMATOLOGY/ONCOLOGY Hx Hematology/Oncology Disorders: No Family Medical History Hx Heart Disease: Father Hx HTN: Mother Physical Exam - General General Appearance: Moderate distress Limitations: Altered mental status - Head Head exam: Atraumatic, Normocephalic, Normal inspection Head exam detail: negative: Abrasion, Contusion, Martínez's sign, General tenderness, Hematoma, Laceration - Eye Eye exam: Normal appearance. negative: Conjunctival injection, Periorbital swelling, Periorbital tenderness, Scleral icterus - ENT ENT exam: Mucous membranes dry Ear exam: negative: Auricular hematoma, Auricular trauma Nasal Exam: negative: Active bleeding, Discharge, Dried blood, Foreign body Mouth exam: negative: Drooling, Laceration, Muffled voice, Tongue elevation - Neck Neck exam: Normal inspection. negative: Meningismus, Tenderness - Respiratory Respiratory exam: Normal lung sounds bilaterally. negative: Rales, Respiratory distress, Rhonchi, Stridor - Cardiovascular Cardiovascular Exam: Regular rate, Normal rhythm, Normal heart sounds - GI/Abdominal GI/Abdominal exam: Soft. negative: Rebound, Rigid, Tenderness - Rectal Rectal exam: Deferred - exam: Deferred - Extremities Extremities exam: Normal inspection, Other (Mild shuffling movements to the upper extremities bilaterally) - Back Back exam: Denies: CVA tenderness (R), CVA tenderness (L) - Neurological Neurological exam: Altered, Other (Cannot assess as the patient is not following commands/answering questions on examination) - Skin Skin exam: Normal color. negative: Abrasion Type of lesion: negative: abrasion Course - Reevaluation(s) Reevaluation #1: 08/13/17 12:11 EKG: NSR 78 Normal axis, normal intervals Artifact without acute ST-T wave changes Reevaluation #2: 08/13/17 12:58 Patient became agitated while ED, Zyprexa administered 10 minutes ago, patient is significantly improved and calmer. Reevaluation #3: 08/13/17 13:13 Labs reviewed and are grossly unremarkable for an acute process. UA pending. Reevaluation #4: 08/13/17 13:48 UA appears negative for an acute process. Patient is more calm and resting comfortably. Reevaluation #5: 08/13/17 15:19 previous imaging from 08/07/17 was reviewed: CT Brain: No acute process, post-operative changes CT Cervical Spine: Multi-level degenerative changes, nothing acute CXR: No acute infiltrate is present. Patient is calmer and more awake, tolerating PO at this time. Patient's SO reports that although he is improved clinically, she is concerned about taking the patient home with his aggressive behavior. Will admit for further evaluation and possible placement. Case was discussed with Edith on-call [employer] for Dr. Marie, will accept admission at this time. Medical Decision Making - Lab Data Result diagrams: 08/13/17 12:35 08/13/17 12:35 Disposition Disposition: Admit Clinical Impression: Agitation, Parkinson disease, symptomatic Disposition: Still a Patient at [facility] Decision to Admit: Admit from ER Decision to Admit Date: 08/13/17 Decision to Admit Time: 15:26 Condition: (2) Stable Forms: Patient Portal Access Time of Disposition: 15:26 Quality - Quality Measures Quality Measures: N/A - Blood Pressure Screening Does Patient Have Any of the Following: No Blood Pressure Classification: Pre-Hypertensive BP Reading Systolic Measurement: 134 Diastolic Measurement: 76 Screening for High Blood Pressure: < Pre-Hypertensive BP, F/U Documented > [ G8950] Pre-Hypertensive Follow-up Interventions: Referral to alternative/primary care provider.
[2017-08-13] MEDS ORDERED: OLANZAPINE 10 MG VIAL IM ONE (12:40)
[2017-08-13 12:41] LABS: BASO % 0.6 % (0-6); EOS % 0.8 % (0-6); GRAN % 59.8 % (47-80); HEMATOCRIT 46.9 % (42.0-52.0); LYMPH % 26.9 % (16-45); MEAN CELL VOLUME 99.6 fl (81-97); MEAN CORPUSCULAR HGB CONC 34.1 g/dl (32-36); MEAN PLATELET VOLUME 8.8 fl (7.4-10.4); MONO % 11.9 % (0-9); PLATELET COUNT 250 K/uL (130-400); RED BLOOD COUNT 4.71 M/uL (4.40-5.70); WHITE BLOOD COUNT W/O DIFF 6.5 K/uL (4.2-12.2)
[2017-08-13 12:53] LABS: BLOOD UREA NITROGEN 16 mg/dL (8-23); CREATININE 0.8 mg/dL (0.7-1.2); EST GLOMERULAR FILTRATION RATE > 60 mL/min
[2017-08-13 12:56] LABS: GLUCOSE,RANDOM 98 mg/dL (74-109)
[2017-08-13 12:58] LABS: ALT/SGPT < 5 U/L (<41); AST/SGOT 16 U/L (10.0-50.0)
[2017-08-13 12:59] LABS: ALB/GLOB RATIO 1.5 (1.1-1.8); ALBUMIN 4.2 g/dL (4.0-5.0); ALKALINE PHOSPHATASE 51 U/L (40-129)
[2017-08-13 13:00] LABS: AMMONIA 23 umol/L (16.0-60.0)
[2017-08-13 13:46] LABS: URINE APPEARANCE CLEAR; URINE BILIRUBIN NEGATIVE (NEGATIVE); URINE BLOOD NEGATIVE (NEGATIVE); URINE GLUCOSE (UA) NEGATIVE (NEGATIVE); URINE KETONE TRACE (NEGATIVE); URINE LEUKOCYTE ESTERASE NEGATIVE (NEGATIVE); URINE NITRITE NEGATIVE (NEGATIVE); URINE PROTEIN NEGATIVE (NEGATIVE); URINE UROBILINOGEN 0.2 E.U./dL (0.20 - 1.00)
[2017-08-13 13:47] LABS: URINE COLOR DARK YELLOW
[2017-08-13] MEDS: 0.9 % SODIUM CHLORIDE 1000ML 1,000 ML IV PRN (16:13)
[2017-08-13] MEDS ORDERED: CARBIDOPA/LEVODOPA 25MG/100MG TABLET PO SCH (16:39)
[2017-08-13] MEDS ORDERED: ACETAMINOPHEN 325 MG TAB PO PRN (16:39)
[2017-08-13] MEDS ORDERED: CLONAZEPAM 1MG TABLET PO PRN (17:19)
--- NOTE | 2017-08-13 17:54 | History & Physical ---
History of Present Illness - Date of Service Date of Service for History & Physical: 08/14/17 - History of Present Illness Admitting Diagnosis: Altered mental status. Agitation History of Present Illness: 67 yo male presents with for increased agitation, decreased PO intake in relation to Parkinsons. PMH Parkinsons, constipation, GERD, anxiety. Pt was seen in ED 08/07/17 for altered mental status but improved after rehydration and then was d/c'd home with . 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 ER Pt presented to ER again 08/13/17 for same, decreased PO intake and altered mental status and additionally aggression. Pt reported some aggression at home and ER provider reports pt was pulling at staff, attempting to pull out IV and becoming very aggitated with basic care and maintaining safety. Zyprexa IM was given and reported that behavior improved. Given- 1L NS bolus with NS @ 100 maintainence, 10mg Zyprexa IM UA negavitve for infection WBC 6.5, Hgb 16, Hct 46.9, plt 250 NA 144, K 3.5, Cl 00, CO2 26, BUN 16, creatinine 0.8, GFR >60, glucose 98 LFTs WNL Temp 97.4 F, HR 76, RR 16, BP 150/71, 98% RA CXR, CT head and neck completed on 08/07/17 reviewed as negative and no repeat completed as no reported recent falls at home. Pt did fall 08/07/17 per ED report , found pt down. Admission for altered mental status, dehydration and aggression encouraged to be present in the AM for provider and SW rounding while inpt. 08/13/[address] head ordered r/t recent fall and continued AMS and agitation Repeat is negative for acute process PCP Specialist: Doreen ROSE with [facility] Travel Screening - Travel/Exposure Within Last 30 Days Have you traveled within the last 30 days?: No - Travel/Exposure Within Last Year Have you traveled outside the [place] in the last year?: No - Additonal Travel Details Have you been exposed to anyone with a communicable illness?: No - Travel Symptoms Symptom Screening: None Review of Systems Constitutional: Denies: Fever Eyes: Denies: Eye discharge ENT: Denies: Congestion Respiratory: Denies: Cough Cardiovascular: Denies: Edema Endocrine: Denies: Polyuria Gastrointestinal: Reports: Constipation (chronic) Musculoskeletal: Denies: Joint swelling Skin: Denies: Bruising Other: ROS reported by , remaining unable to obtained r/t to pain condition Past Medical History - SOCIAL HISTORY Smoking Status: Never smoker Alcohol Use: None Drug Use: None - RESPIRATORY Hx Respiratory Disorders: No - CARDIOVASCULAR Hx Cardio Disorders: No - NEURO Hx Neuro Disorders: Yes Hx Dementia: Yes Hx Parkinson's Disease: Yes Hx Speech Problem: Yes Comment:: brain stimulator placed for parkinson's 2011 - GI Hx GI Disorders: Yes Hx Reflux: Yes Hx of Polyps: Yes - Hx Genitourinary Disorders: No Hx UTI: Yes () - ENDOCRINE Hx Endocrine Disorders: No Hx Diabetes: No Hx Thyroid Disease: No - MUSCULOSKELETAL Hx Musculoskeletal Disorders: Yes Hx Arthritis: Yes Comment:: hip pain/problems - PSYCH Hx Psych Problems: Yes Hx Depression: Yes (d/t Parkinon's) - HEMATOLOGY/ONCOLOGY Hx Hematology/Oncology Disorders: No Family Medical History Any Significant Family History?: Yes Hx Heart Disease: Father Hx HTN: Mother Hx Seizures: Children H&P Meds/Allergies - Allergies Allergies: Allergies Allergy/AdvReac Type Severity Reaction Status Date / Time bupropion HCl Allergy HIVES Verified 08/13/17 11:53 [From Wellbutrin] - Active Medications Active Medications: Current Medications Acetaminophen (Tylenol 325mg) 650 mg PO Q6H PRN PRN Reason: PAIN/TEMP Carbidopa/Levodopa (Sinemet) 1.5 each PO 0600,0900,1200,1500 TED Carbidopa/Levodopa (Sinemet) 1.5 each PO 1800,2100 TED Clonazepam (Klonopin) 1 mg PO QHS TED Clonazepam (Klonopin) 1 mg PO DAILY PRN PRN Reason: ANXIETY/AGITATION Sodium Chloride () 1,000 mls @ 100 mls/hr IV .Q10H PRN PRN Reason: LARGE VOLUME IV Pantoprazole Sodium (Protonix) 40 mg PO QHS TED Physical Exam - Vital Signs Vital Signs: Vital Signs - Last 24 Hrs Temp Pulse Pulse Resp BP BP Pulse Ox 08/13/17 16:25 16 153/70 100 08/13/17 14:05 75 16 144/83 100 08/13/17 11:55 97.3 F L 77 18 134/76 99 - General General Appearance: Mild distress Limitations: Altered mental status - Head Head exam: Atraumatic, Normocephalic, Normal inspection Head exam detail: negative: Abrasion, Contusion, Martínez's sign, General tenderness, Hematoma, Laceration - Eye Eye exam: Normal appearance. negative: Conjunctival injection, Periorbital swelling, Periorbital tenderness, Scleral icterus - ENT ENT exam: Mucous membranes dry Ear exam: negative: Auricular hematoma, Auricular trauma Nasal Exam: negative: Active bleeding, Discharge, Dried blood, Foreign body Mouth exam: negative: Drooling, Laceration, Muffled voice, Tongue elevation - Neck Neck exam: Normal inspection. negative: Meningismus, Tenderness - Respiratory Respiratory exam: Normal lung sounds bilaterally. negative: Rales, Respiratory distress, Rhonchi, Stridor - Cardiovascular Cardiovascular Exam: Regular rate, Normal rhythm, Normal heart sounds Peripheral Pulses: 2+: Radial (R), Radial (L), Dorsalis Pedis (R), Dorsalis Pedis (L) - GI/Abdominal GI/Abdominal exam: Soft. negative: Rebound, Rigid, Tenderness - Rectal Rectal exam: Deferred - exam: Deferred - Extremities Extremities exam: Normal inspection, Other (Mild shuffling movements to the upper extremities bilaterally) - Back Back exam: Denies: CVA tenderness (R), CVA tenderness (L) - Neurological Neurological exam: Altered, Other (Cannot assess as the patient is not following commands/answering questions on examination) - Psychiatric Psychiatric exam: Agitated (pt has been wax/wane with aggression to staff) - Skin Skin exam: Normal color. negative: Abrasion Type of lesion: negative: abrasion Results - Labs Result Diagrams: 08/13/17 12:35 08/13/17 12:35 Labs Last 24 Hours: Laboratory Results - last 24 hr 08/13/17 08/13/17 08/13/17 12:35 12:35 13:40 WBC 6.5 RBC 4.71 Hgb 16.0 Hct 46.9 MCV 99.6 H MCH 34.0 H MCHC 34.1 RDW 13.0 Plt Count 250 MPV 8.8 Gran % 59.8 Lymphocytes % 26.9 Monocytes % 11.9 H Eosinophils % 0.8 Basophils % 0.6 Sodium 144 Potassium 3.5 Chloride 100 Carbon Dioxide 26.0 Anion Gap 18.0 H BUN 16 Creatinine 0.8 Estimated GFR > 60 Random Glucose 98 Calcium 8.9 Total Bilirubin 0.70 AST 16 ALT < 5 Alkaline Phosphatase 51 Ammonia 23 Total Protein 7.0 Albumin 4.2 Globulin 2.8 Albumin/Globulin Ratio 1.5 Urine Color Dark yellow Urine Appearance Clear Urine pH 6.0 Ur Specific [place] >= 1.030 Urine Protein Negative Urine Glucose (UA) Negative Urine Ketones Trace H Urine Blood Negative Urine Nitrite Negative Urine Bilirubin Negative Urine Urobilinogen 0.2 Ur Leukocyte Esterase Negative - Imaging and Cardiology CT scan - head Status: Report reviewed VTE H&P Assessment - Risk for VTE Risk for VTE: Yes Risk Level: High Risk Assessment Date: 08/14/17 Risk Assessment Time: 11:13 VTE Orders Placed or Will Be Placed: Yes Plan - Inpatient Certification Inpatient Certification: Admit to inpatient care: Based on my medical assessment, after consideration of patient's risk factors (age, co-morbidities and patient presenting symptoms and acuity), I expect that this patient will remain in the hospital greater than or equal to two midnights and that the services needed warrant inpatient care because: Patient Risk Factors: aggression, dehydration, symptomatic Parkinson's Estimated length of stay: The patient may reasonably be expected to be discharged or transferred to a hospital within 96 hours after admission to [facility]. Services needed: IVF, incontinence care, maintaining patient safety, total feed , repositioning q 2 hours, Post hospital care (if known): potentially home health care or SNF placement I certify that my determination is in accordance with my understanding of Medicare requirements for reasonable and necessary inpatient services. 08/14/17 11:14 - Detailed Diagnosis and Plan (1) Agitation Current Visit: Yes Status: Acute Base Code: R45.1 - RESTLESSNESS AND AGITATION Comment: 08/14/17 -pt was aggressive (2) Parkinson disease, symptomatic Current Visit: Yes Status: Acute Base Code: G20 - PARKINSON'S DISEASE Comment: 08/14/17 -Pt has wax/wane Parkinson's symptoms - reports aggression, repeated falls at home, and now refusal to eat/drink or take meds -admission for rehydration and return to home medications
[2017-08-13] MEDS: CARBIDOPA/LEVODOPA 25MG/100MG TABLET PO SCH ×2 (18:21→21:42)
[2017-08-13] MEDS: CLONAZEPAM 1MG TABLET PO SCH (21:45)
[2017-08-13] MEDS ORDERED: CLONAZEPAM 1 MG PO SCH (22:00)
[2017-08-13] MEDS: PANTOPRAZOLE SODIUM 40 MG TABLET PO SCH (22:10)
[2017-08-14] MEDS ORDERED: OLANZAPINE 10 MG VIAL IM ONE (00:56)
[2017-08-14] MEDS: 0.9 % SODIUM CHLORIDE 1000ML 1,000 ML IV PRN ×2 (01:12→11:30)
[2017-08-14] MEDS: CARBIDOPA/LEVODOPA 25MG/100MG TABLET PO SCH ×6 (06:54→21:26)
--- NOTE | 2017-08-14 07:20 | CT SCAN REPORT ---
EXAM: CT OF THE HEAD WITHOUT IV CONTRAST HISTORY: TRANSIENT ALTERATION OF AWARENESS. TECHNIQUE: Helical CT scan of the head was obtained without intravenous contrast. Comparison: CT of the head 08/07/17 at 13:20. Hand dominance: Unknown. FINDINGS: Bilateral electrical leads are again seen, unchanged in position. There is no evidence of hemorrhage, extraaxial fluid collection, or major vessel infarction. The dixon white matter differentiation is maintained. No mass effect or midline shift. The ventricles are stable, mildly enlarged, concordant with central atrophy. The paranasal sinuses again show an osteoma in the left frontal sinus. No fluid levels. IMPRESSION: NO ACUTE INTRACRANIAL ABNORMALITIES. JOB NUMBER: [id number] MTDD
--- NOTE | 2017-08-14 15:18 | Occupational Therapy Tx Note ---
Occupational Therapy Tx Note - Treatment Note Occupational Therapy Treatment Note: Detail (Attempted to complete OT evaluation , pt very lethargic and unable to participate in OT evaluation. He was able to open eyes slightly, after max physical stimulation to awaken. He became tearful but was non verbal and unable to follow commands. Will attempt again on 08/16/17.)
--- NOTE | 2017-08-14 15:56 | Physical Therapy Tx Note ---
Physical Therapy Tx Note - Treatment Note Tolerated: Poor Physical Therapy Tx Note: Detail (Patient was seen jointly for OT for an initial evaluation. The patient was difficult to rouse and required maximal verbal stimulation to even open his eyes. The patient briefly opened his eyes and followed one command to smile. After a conversation with CM who stated patient's had decided to take patient home and it was decided an OT, PT eval was no longer required.)
[2017-08-14] MEDS: CLONAZEPAM 1MG TABLET PO SCH ×2 (16:46→21:27)
[2017-08-14] MEDS: OLANZAPINE 5MG TABLET PO SCH (17:16)
[2017-08-14] MEDS: PANTOPRAZOLE SODIUM 40 MG TABLET PO SCH (21:27)
[2017-08-15] MEDS: CARBIDOPA/LEVODOPA 25MG/100MG TABLET PO SCH ×6 (05:56→20:01)
--- NOTE | 2017-08-15 07:21 | RADIOLOGY REPORT ---
EXAM: ABDOMEN, TWO VIEWS HISTORY: ABDOMINAL DISTENTION, CONSTIPATION. TECHNIQUE: Supine and upright views of the abdomen were obtained. Comparison: None. FINDINGS: There are probably surgical clips in the right upper quadrant of the abdomen presumably from cholecystectomy. The bowel gas pattern is nonspecific with no prominently dilated air filled loops of bowel identified. Very few, if any, air fluid levels are seen aside from the stomach and no free air identified. Thoracolumbar curve to the right. IMPRESSION: 1. SURGICAL CLIPS RIGHT UPPER QUADRANT. 2. NO PROMINENTLY DILATED AIR FILLED LOOPS OF BOWEL WITH NO AIR FLUID LEVELS SEEN ASIDE FROM THE STOMACH AND NO FREE AIR EVIDENT. JOB NUMBER: [id number] MTDD
[2017-08-15] MEDS ORDERED: OLANZAPINE 5MG TABLET PO SCH (10:00)
--- NOTE | 2017-08-15 11:50 | Discharge Summary ---
Providers Discharge Summary Date: 08/15/17 Date of admission: 08/13/17 15:55 Expected Date of Discharge: 08/15/17 Attending physician: YOSELYN ROSE Primary care physician: JANNY BEASLEY M.D. Physical Exam - Vital Signs Vital Signs: Vital Signs - Last 24 Hrs Temp Pulse Resp BP BP Pulse Ox 08/15/17 10:46 97.7 F 114/58 08/15/17 09:00 98 H 16 08/15/17 07:53 97.7 F 100 H 16 114/58 97 08/14/17 21:00 18 08/14/17 20:15 98.2 F 64 18 154/82 97 08/14/17 16:00 97.9 F 60 16 132/58 96 08/14/17 14:08 97.4 F L 59 L 16 144/68 95 - General General Appearance: Mild distress Limitations: Altered mental status - Head Head exam: Atraumatic, Normocephalic, Normal inspection Head exam detail: negative: Abrasion, Contusion, Martínez's sign, General tenderness, Hematoma, Laceration - Eye Eye exam: Normal appearance. negative: Conjunctival injection, Periorbital swelling, Periorbital tenderness, Scleral icterus - ENT ENT exam: Mucous membranes dry Ear exam: negative: Auricular hematoma, Auricular trauma Nasal Exam: negative: Active bleeding, Discharge, Dried blood, Foreign body Mouth exam: negative: Drooling, Laceration, Muffled voice, Tongue elevation - Neck Neck exam: Normal inspection. negative: Meningismus, Tenderness - Respiratory Respiratory exam: Normal lung sounds bilaterally. negative: Rales, Respiratory distress, Rhonchi, Stridor - Cardiovascular Cardiovascular Exam: Regular rate, Normal rhythm, Normal heart sounds Peripheral Pulses: 2+: Radial (R), Radial (L), Dorsalis Pedis (R), Dorsalis Pedis (L) - GI/Abdominal GI/Abdominal exam: Soft. negative: Rebound, Rigid, Tenderness - Rectal Rectal exam: Deferred - exam: Deferred - Extremities Extremities exam: Normal inspection, Other (Mild shuffling movements to the upper extremities bilaterally) - Back Back exam: Denies: CVA tenderness (R), CVA tenderness (L) - Neurological Neurological exam: Altered, Other (Cannot assess as the patient is not following commands/answering questions on examination) - Psychiatric Psychiatric exam: Agitated (pt has been wax/wane with aggression to staff) - Skin Skin exam: Normal color. negative: Abrasion Type of lesion: negative: abrasion Hospitalization - Hospitalization Admission Diagnosis: Altered mental status. Agitation - Problem List/Discharge Diagnosis (1) Agitation Current Visit: Yes Status: Acute Base Code: R45.1 - RESTLESSNESS AND AGITATION Comment: 08/15/17 08/14/17 -pt was aggressive (2) Parkinson disease, symptomatic Current Visit: Yes Status: Chronic Base Code: G20 - PARKINSON'S DISEASE Comment: 08/14/17 -Pt has wax/wane Parkinson's symptoms - reports aggression, repeated falls at home, and now refusal to eat/drink or take meds -admission for rehydration and return to home medications - Hospitalization Course Procedures: Imaging and X-Rays 08/13/17 18:10 HEAD WO CONTRAST [CT] Stat 08/14/17 09:35 ABDOMEN 2 VIEW [RAD] Stat Cardiology Procedures 08/13/17 11:58 EKG NOW Abnormal Labs: Abnormal Lab Results 08/13/17 08/13/17 08/13/17 Range/Units 12:35 12:35 13:40 MCV 99.6 H (81-97) fl MCH 34.0 H (27-33) pg Monocytes % 11.9 H (0-9) % Anion Gap 18.0 H (7-16) Urine Ketones Trace H (NEGATIVE) Condition at Discharge: (2) Stable Discharge Medications - Discharge Medications Home Medications: Ambulatory Orders Carbidopa/Levodopa 25Mg/100Mg [Sinemet] 1.5 tab PO Q3HR 10/24/16 [Last Taken 11/23] Clonazepam 1 mg PO BID 10/24/16 [Last Taken 08/13/17 11:00] Omeprazole [Prilosec] 20 mg PO DAILY 10/24/16 [Last Taken 08/13/17] Discharge Plan - Discharge Instructions Quality Measures - Quality Measures Quality Measures: Advance Directives, Documentation of Current Medications in Medical Record, Elder Maltreatment Screen and Follow-Up Plan, Screening for High Blood Pressure and F/U Documented - Current Medications Quality Measure: Measure #130: Documentation of Current Medications - Blood Pressure Screening Quality Measure: Screening for High Blood Pressure and Follow-Up Documented Blood Pressure Classification: Normal BP Reading Systolic Measurement: 114 Diastolic Measurement: 58 Screening for High Blood Pressure: < Normal BP, F/U Not Required > [G8783] - Advance Directives Quality Measure: Measure #47: Care Plan Advance Directives Established: Yes Advance Directives Information Provided To Patient: Declined Advance Directives on File: No Living Will: Yes 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 Power of Slice Plug Cutter Operator Name: KEVIN BETHEA () - Elder Abuse Suspicion Index Screening: Elder Abuse Suspicion Index Screening Rely on people for bathing, dressing, shopping, banking, etc: Yes Prevented from getting food, clothes, medication, etc: No Made to feel shamed or threatened by someone: No Forced to sign papers or use money against will: No Feel afraid, touched in ways not wanted or hurt physically: No Poor eye contact, withdrawn, malnourished, cuts or bruises: No Screening Result: Negative result EASI Reference Information: Mary Ellen PEACOCK, Donald C, Sharita D, Twan Beavers.Development and validation of a tool to assist physicians identification of elder abuse: The Elder Abuse Suspicion Index (EASI ). Journal of Elder Abuse and Neglect, 2008; 20 (3): 276-300. - Elder Maltreatment Screen Quality Measures: Elder Maltreatment Screen and Follow-Up Plan Elder Maltreatment Screen: <Negative, No Follow-Up Plan Required> [G8734]
[2017-08-15] MEDS: ENOXAPARIN 40 MG/0.4 ML SYR SQ SCH (11:51)
[2017-08-15] MEDS: OLANZAPINE 5MG TABLET PO SCH (13:02)
--- NOTE | 2017-08-15 16:04 | Physician Progress Note ---
Subjective - Date Date of Physician Progress Note: 08/15/17 Objective - Vital Signs Vital Signs: Vital Signs - Last 24 Hrs Temp Pulse Resp BP BP Pulse Ox 08/15/17 10:46 97.7 F 114/58 08/15/17 09:00 98 H 16 08/15/17 07:53 97.7 F 100 H 16 114/58 97 08/14/17 21:00 18 08/14/17 20:15 98.2 F 64 18 154/82 97 - General General Appearance: Mild distress Limitations: Altered mental status - Head Head exam: Atraumatic, Normocephalic, Normal inspection Head exam detail: negative: Abrasion, Contusion, Martínez's sign, General tenderness, Hematoma, Laceration - Eye Eye exam: Normal appearance. negative: Conjunctival injection, Periorbital swelling, Periorbital tenderness, Scleral icterus - ENT ENT exam: Mucous membranes dry Ear exam: negative: Auricular hematoma, Auricular trauma Nasal Exam: negative: Active bleeding, Discharge, Dried blood, Foreign body Mouth exam: negative: Drooling, Laceration, Muffled voice, Tongue elevation - Neck Neck exam: Normal inspection. negative: Meningismus, Tenderness - Respiratory Respiratory exam: Normal lung sounds bilaterally. negative: Rales, Respiratory distress, Rhonchi, Stridor - Cardiovascular Cardiovascular Exam: Regular rate, Normal rhythm, Normal heart sounds Peripheral Pulses: 2+: Radial (R), Radial (L), Dorsalis Pedis (R), Dorsalis Pedis (L) - GI/Abdominal GI/Abdominal exam: Soft. negative: Rebound, Rigid, Tenderness - Rectal Rectal exam: Deferred - exam: Deferred - Extremities Extremities exam: Normal inspection, Other (Mild shuffling movements to the upper extremities bilaterally) - Back Back exam: Denies: CVA tenderness (R), CVA tenderness (L) - Neurological Neurological exam: Altered, Other (Cannot assess as the patient is not following commands/answering questions on examination) - Psychiatric Psychiatric exam: Agitated (pt has been wax/wane with aggression to staff) - Skin Skin exam: Normal color. negative: Abrasion Type of lesion: negative: abrasion Assessment and Plan - Assessment and Plan (1) Agitation Current Visit: Yes Status: Acute Base Code: R45.1 - RESTLESSNESS AND AGITATION Comment: 08/15/17 -pt has not been aggressive this AM, PRN remains for aggressive behavior 08/14/17 -pt was aggressive (2) Parkinson disease, symptomatic Current Visit: Yes Status: Chronic Base Code: G20 - PARKINSON'S DISEASE Comment: 08/14/17 -Pt has wax/wane Parkinson's symptoms - reports aggression, repeated falls at home, and now refusal to eat/drink or take meds -admission for rehydration and return to home medications 08/15/17 -pt has been tolerating PO meds with food -increased PO intake, IVF held (3) DVT prophylaxis Current Visit: Yes Status: Acute Base Code: [id number] - Comment: 08/15/17 -starting lovenox 40mg in AM if not dispo Results - Labs Result Diagrams: 08/13/17 12:35 08/13/17 12:35 DVT/PE Assessment - Risk for VTE Risk for VTE: No Risk Level: High Risk Assessment Date: 08/14/17 Risk Assessment Time: 11:13 VTE Orders Placed or Will Be Placed: Yes - Active Medicaitons Current Medications: Current Medications Acetaminophen (Tylenol 325mg) 650 mg PO Q6H PRN PRN Reason: PAIN/TEMP Carbidopa/Levodopa (Sinemet) 1.5 each PO 0600,0900,1200,1500 [facility] Last Admin: 08/15/17 11:54 Dose: 1.5 each Carbidopa/Levodopa (Sinemet) 1.5 each PO 1800,2100 [facility] Last Admin: 08/14/17 21:26 Dose: 1.5 each Clonazepam (Klonopin) 1 mg PO QHS [facility] Last Admin: 08/14/17 21:27 Dose: 1 mg Clonazepam (Klonopin) 1 mg PO DAILY PRN PRN Reason: ANXIETY/AGITATION Last Admin: 08/14/17 16:52 Dose: 1 mg Enoxaparin Sodium (Lovenox) 40 mg SQ DAILY [facility] Last Admin: 08/15/17 11:51 Dose: 40 mg Sodium Chloride () 1,000 mls @ 100 mls/hr IV .Q10H PRN PRN Reason: LARGE VOLUME IV Last Admin: 08/14/17 11:30 Dose: 100 mls/hr Olanzapine (Zyprexa) 10 mg PO DAILY PRN PRN Reason: aggression Pantoprazole Sodium (Protonix) 40 mg PO QHS [facility] Last Admin: 08/14/17 21:27 Dose: 40 mg AMI Plan - Labs Result Diagrams: 08/13/17 12:35 08/13/17 12:35
[2017-08-15] MEDS: CLONAZEPAM 1MG TABLET PO SCH (22:04)
[2017-08-15] MEDS: PANTOPRAZOLE SODIUM 40 MG TABLET PO SCH (22:04)
[2017-08-16] MEDS: CARBIDOPA/LEVODOPA 25MG/100MG TABLET PO SCH ×6 (06:10→21:23)
[2017-08-16 07:13] LABS: BLOOD UREA NITROGEN 14 mg/dL (8-23); CREATININE 0.8 mg/dL (0.7-1.2); EST GLOMERULAR FILTRATION RATE > 60 mL/min; GLUCOSE,RANDOM 96 mg/dL (74-109)
[2017-08-16] MEDS: ENOXAPARIN 40 MG/0.4 ML SYR SQ SCH (10:07)
--- NOTE | 2017-08-16 13:44 | Physician Progress Note ---
Subjective - Date Date of Physician Progress Note: 08/16/17 Objective - Vital Signs Vital Signs: Vital Signs - Last 24 Hrs Temp Pulse Resp BP BP Pulse Ox 08/16/17 08:00 98.1 F 70 16 118/76 100 08/15/17 21:00 18 08/15/17 20:00 98.1 F 65 18 139/79 100 08/15/17 16:00 99.1 F 72 18 136/72 99 - General General Appearance: No acute distress Limitations: Altered mental status - Head Head exam: Atraumatic, Normocephalic, Normal inspection Head exam detail: negative: Abrasion, Contusion, Martínez's sign, General tenderness, Hematoma, Laceration - Eye Eye exam: Normal appearance. negative: Conjunctival injection, Periorbital swelling, Periorbital tenderness, Scleral icterus - ENT ENT exam: Mucous membranes dry Ear exam: negative: Auricular hematoma, Auricular trauma Nasal Exam: negative: Active bleeding, Discharge, Dried blood, Foreign body Mouth exam: negative: Drooling, Laceration, Muffled voice, Tongue elevation - Neck Neck exam: Normal inspection. negative: Meningismus, Tenderness - Respiratory Respiratory exam: Normal lung sounds bilaterally. negative: Rales, Respiratory distress, Rhonchi, Stridor - Cardiovascular Cardiovascular Exam: Regular rate, Normal rhythm, Normal heart sounds Peripheral Pulses: 2+: Radial (R), Radial (L), Dorsalis Pedis (R), Dorsalis Pedis (L) - GI/Abdominal GI/Abdominal exam: Soft. negative: Rebound, Rigid, Tenderness - Rectal Rectal exam: Deferred - exam: Deferred - Extremities Extremities exam: Normal inspection, Other (Mild shuffling movements to the upper extremities bilaterally) - Back Back exam: Denies: CVA tenderness (R), CVA tenderness (L) - Neurological Neurological exam: Altered, Other (Cannot assess as the patient is not following commands/answering questions on examination) - Psychiatric Psychiatric exam: Flat affect - Skin Skin exam: Normal color. negative: Abrasion Type of lesion: negative: abrasion Assessment and Plan - Assessment and Plan (1) Agitation Current Visit: Yes Status: Acute Base Code: R45.1 - RESTLESSNESS AND AGITATION Comment: 08/14/17 -pt was aggressive 08/15/17 -pt has not been aggressive this AM, PRN remains for aggressive behavior 08/16/17 -pt did not req HS zyprexa and has been flat and less resitive to care today, still awaiting placement (2) Parkinson disease, symptomatic Current Visit: Yes Status: Chronic Base Code: G20 - PARKINSON'S DISEASE Comment: 08/14/17 -Pt has wax/wane Parkinson's symptoms - reports aggression, repeated falls at home, and now refusal to eat/drink or take meds -admission for rehydration and return to home medications 08/15/17 -pt has been tolerating PO meds with food -increased PO intake, IVF held 08/16/17 -pt is accepting PO intake and meds -not aggressive today, did not require PRN meds at HS yesterday -awaiting placement (3) DVT prophylaxis Current Visit: Yes Status: Acute Base Code: [id number] - Comment: 08/15/17 -starting lovenox 40mg in AM if not dispo 08/16/17 -cont lovenox 40mg Results - Labs Result Diagrams: 08/13/17 12:35 08/16/17 06:30 Labs Last 24 Hours: Laboratory Results - last 24 hr 08/16/17 06:30 Sodium 142 Potassium 4.3 Chloride 101 Carbon Dioxide 25.0 Anion Gap 16.0 BUN 14 Creatinine 0.8 Estimated GFR > 60 Random Glucose 96 Calcium 8.8 DVT/PE Assessment - Risk for VTE Risk for VTE: No Risk Level: High Risk Assessment Date: 08/14/17 Risk Assessment Time: 11:13 VTE Orders Placed or Will Be Placed: Yes - Active Medicaitons Current Medications: Current Medications Acetaminophen (Tylenol 325mg) 650 mg PO Q6H PRN PRN Reason: PAIN/TEMP Carbidopa/Levodopa (Sinemet) 1.5 each PO 0600,0900,1200,1500 [facility] Last Admin: 08/16/17 13:02 Dose: 1.5 each Carbidopa/Levodopa (Sinemet) 1.5 each PO 1800,2100 [facility] Last Admin: 08/15/17 20:01 Dose: 1.5 each Clonazepam (Klonopin) 1 mg PO QHS [facility] Last Admin: 08/15/17 22:04 Dose: 1 mg Clonazepam (Klonopin) 1 mg PO DAILY PRN PRN Reason: ANXIETY/AGITATION Last Admin: 08/14/17 16:52 Dose: 1 mg Enoxaparin Sodium (Lovenox) 40 mg SQ DAILY [facility] Last Admin: 08/16/17 10:07 Dose: 40 mg Sodium Chloride () 1,000 mls @ 100 mls/hr IV .Q10H PRN PRN Reason: LARGE VOLUME IV Last Admin: 08/14/17 11:30 Dose: 100 mls/hr Olanzapine (Zyprexa) 10 mg PO DAILY PRN PRN Reason: aggression Pantoprazole Sodium (Protonix) 40 mg PO QHS [facility] Last Admin: 08/15/17 22:04 Dose: 40 mg AMI Plan - Labs Result Diagrams: 08/13/17 12:35 08/16/17 06:30
[2017-08-16] MEDS: PANTOPRAZOLE SODIUM 40 MG TABLET PO SCH (21:22)
[2017-08-16] MEDS: CLONAZEPAM 1MG TABLET PO SCH (21:22)
[2017-08-16] MEDS: OLANZAPINE 5MG TABLET PO PRN (22:41)
[2017-08-17] MEDS: CARBIDOPA/LEVODOPA 25MG/100MG TABLET PO SCH ×6 (06:01→22:24)
[2017-08-17] MEDS: ENOXAPARIN 40 MG/0.4 ML SYR SQ SCH (09:16)
--- NOTE | 2017-08-17 12:39 | Physician Progress Note ---
Subjective - Date Date of Physician Progress Note: 08/17/17 Objective - Vital Signs Vital Signs: Vital Signs - Last 24 Hrs Temp Pulse Resp BP Pulse Ox 08/17/17 10:00 97.7 F 77 16 122/64 96 08/16/17 20:07 18 08/16/17 15:57 97.3 F L 73 18 98/58 94 L - General General Appearance: No acute distress Limitations: Altered mental status - Head Head exam: Atraumatic, Normocephalic, Normal inspection Head exam detail: negative: Abrasion, Contusion, Martínez's sign, General tenderness, Hematoma, Laceration - Eye Eye exam: Normal appearance. negative: Conjunctival injection, Periorbital swelling, Periorbital tenderness, Scleral icterus - ENT ENT exam: Mucous membranes dry Ear exam: negative: Auricular hematoma, Auricular trauma Nasal Exam: negative: Active bleeding, Discharge, Dried blood, Foreign body Mouth exam: negative: Drooling, Laceration, Muffled voice, Tongue elevation - Neck Neck exam: Normal inspection. negative: Meningismus, Tenderness - Respiratory Respiratory exam: Normal lung sounds bilaterally. negative: Rales, Respiratory distress, Rhonchi, Stridor - Cardiovascular Cardiovascular Exam: Regular rate, Normal rhythm, Normal heart sounds Peripheral Pulses: 2+: Radial (R), Radial (L), Dorsalis Pedis (R), Dorsalis Pedis (L) - GI/Abdominal GI/Abdominal exam: Soft. negative: Rebound, Rigid, Tenderness - Rectal Rectal exam: Deferred - exam: Deferred - Extremities Extremities exam: Normal inspection, Other (Mild shuffling movements to the upper extremities bilaterally) - Back Back exam: Denies: CVA tenderness (R), CVA tenderness (L) - Neurological Neurological exam: Altered, Other (Cannot assess as the patient is not following commands/answering questions on examination) - Psychiatric Psychiatric exam: Flat affect - Skin Skin exam: Normal color. negative: Abrasion Type of lesion: negative: abrasion Assessment and Plan - Assessment and Plan (1) Agitation Current Visit: Yes Status: Acute Base Code: R45.1 - RESTLESSNESS AND AGITATION Comment: 08/14/17 -pt was aggressive 08/15/17 -pt has not been aggressive this AM, PRN remains for aggressive behavior 08/16/17 -pt did not req HS zyprexa and has been flat and less resitive to care today, still awaiting placement 08/17/17 -pt became aggitated and aggressive last night, required Zyprexa last night. (2) Parkinson disease, symptomatic Current Visit: Yes Status: Chronic Base Code: G20 - PARKINSON'S DISEASE Comment: 08/14/17 -Pt has wax/wane Parkinson's symptoms - reports aggression, repeated falls at home, and now refusal to eat/drink or take meds -admission for rehydration and return to home medications 08/15/17 -pt has been tolerating PO meds with food -increased PO intake, IVF held 08/16/17 -pt is accepting PO intake and meds -not aggressive today, did not require PRN meds at HS yesterday -awaiting placement 08/17/17 -pt continues to eat and take meds PO -remains total feed -awaiting placment (3) DVT prophylaxis Current Visit: Yes Status: Acute Base Code: [id number] - Comment: 08/15/17 -starting lovenox 40mg in AM if not dispo 08/16/17 -cont lovenox 40mg 08/17/17 -cont lovenox 40mg Results - Labs Result Diagrams: 08/13/17 12:35 08/16/17 06:30 DVT/PE Assessment - Risk for VTE Risk for VTE: No Risk Level: High Risk Assessment Date: 08/14/17 Risk Assessment Time: 11:13 VTE Orders Placed or Will Be Placed: Yes - Active Medicaitons Current Medications: Current Medications Acetaminophen (Tylenol 325mg) 650 mg PO Q6H PRN PRN Reason: PAIN/TEMP Carbidopa/Levodopa (Sinemet) 1.5 each PO 0600,0900,1200,1500 [facility] Last Admin: 08/17/17 12:18 Dose: 1.5 each Carbidopa/Levodopa (Sinemet) 1.5 each PO 1800,2100 [facility] Last Admin: 08/16/17 21:23 Dose: 1.5 each Clonazepam (Klonopin) 1 mg PO QHS [facility] Last Admin: 08/16/17 21:22 Dose: 1 mg Clonazepam (Klonopin) 1 mg PO DAILY PRN PRN Reason: ANXIETY/AGITATION Last Admin: 08/14/17 16:52 Dose: 1 mg Enoxaparin Sodium (Lovenox) 40 mg SQ DAILY [facility] Last Admin: 08/17/17 09:16 Dose: 40 mg Sodium Chloride () 1,000 mls @ 100 mls/hr IV .Q10H PRN PRN Reason: LARGE VOLUME IV Last Admin: 08/14/17 11:30 Dose: 100 mls/hr Olanzapine (Zyprexa) 10 mg PO DAILY PRN PRN Reason: aggression Last Admin: 08/16/17 22:41 Dose: 10 mg Pantoprazole Sodium (Protonix) 40 mg PO QHS [facility] Last Admin: 08/16/17 21:22 Dose: 40 mg AMI Plan - Labs Result Diagrams: 08/13/17 12:35 08/16/17 06:30
[2017-08-17] MEDS: CLONAZEPAM 1MG TABLET PO SCH (22:26)
[2017-08-17] MEDS: PANTOPRAZOLE SODIUM 40 MG TABLET PO SCH (22:27)
[2017-08-17] MEDS: OLANZAPINE 5MG TABLET PO PRN (23:07)
[2017-08-18] MEDS: CARBIDOPA/LEVODOPA 25MG/100MG TABLET PO SCH ×6 (05:31→21:10)
[2017-08-18] MEDS: ENOXAPARIN 40 MG/0.4 ML SYR SQ SCH (09:57)
--- NOTE | 2017-08-18 12:33 | Physician Progress Note ---
Subjective - Date Date of Physician Progress Note: 08/18/17 Objective - Vital Signs Vital Signs: Vital Signs - Last 24 Hrs Temp Pulse Resp BP Pulse Ox 08/18/17 10:00 97.7 F 76 18 94/45 94 L 08/17/17 22:30 98.0 F 112 H 18 107/59 91 L 08/17/17 20:27 71 16 - General General Appearance: No acute distress Limitations: Altered mental status - Head Head exam: Atraumatic, Normocephalic, Normal inspection Head exam detail: negative: Abrasion, Contusion, Martínez's sign, General tenderness, Hematoma, Laceration - Eye Eye exam: Normal appearance. negative: Conjunctival injection, Periorbital swelling, Periorbital tenderness, Scleral icterus - ENT ENT exam: Mucous membranes dry Ear exam: negative: Auricular hematoma, Auricular trauma Nasal Exam: negative: Active bleeding, Discharge, Dried blood, Foreign body Mouth exam: negative: Drooling, Laceration, Muffled voice, Tongue elevation - Neck Neck exam: Normal inspection. negative: Meningismus, Tenderness - Respiratory Respiratory exam: Normal lung sounds bilaterally. negative: Rales, Respiratory distress, Rhonchi, Stridor - Cardiovascular Cardiovascular Exam: Regular rate, Normal rhythm, Normal heart sounds Peripheral Pulses: 2+: Radial (R), Radial (L), Dorsalis Pedis (R), Dorsalis Pedis (L) - GI/Abdominal GI/Abdominal exam: Soft. negative: Rebound, Rigid, Tenderness - Rectal Rectal exam: Deferred - exam: Deferred - Extremities Extremities exam: Normal inspection, Other (Mild shuffling movements to the upper extremities bilaterally) - Back Back exam: Denies: CVA tenderness (R), CVA tenderness (L) - Neurological Neurological exam: Altered, Other (Cannot assess as the patient is not following commands/answering questions on examination) - Psychiatric Psychiatric exam: Flat affect - Skin Skin exam: Normal color. negative: Abrasion Type of lesion: negative: abrasion Assessment and Plan - Assessment and Plan (1) Agitation Current Visit: Yes Status: Acute Base Code: R45.1 - RESTLESSNESS AND AGITATION Comment: 08/14/17 -pt was aggressive 08/15/17 -pt has not been aggressive this AM, PRN remains for aggressive behavior 08/16/17 -pt did not req HS zyprexa and has been flat and less resitive to care today, still awaiting placement 08/17/17 -pt became aggitated and aggressive last night, required Zyprexa last night. 08/18/17 -pt req zyprexa last night but was reported to have significant improvment after medication with ambulation, able to express basic needs and less aggressive -tolerating feeding today, up in chair for lunch (2) Parkinson disease, symptomatic Current Visit: Yes Status: Chronic Base Code: G20 - PARKINSON'S DISEASE Comment: 08/14/17 -Pt has wax/wane Parkinson's symptoms - reports aggression, repeated falls at home, and now refusal to eat/drink or take meds -admission for rehydration and return to home medications 08/15/17 -pt has been tolerating PO meds with food -increased PO intake, IVF held 08/16/17 -pt is accepting PO intake and meds -not aggressive today, did not require PRN meds at HS yesterday -awaiting placement 08/17/17 -pt continues to eat and take meds PO -remains total feed -awaiting placment 08/18/17 -awaiting placement -will contact Mireya brand about pt current condition saturday (3) DVT prophylaxis Current Visit: Yes Status: Acute Base Code: [id number] - Comment: 08/15/17 -starting lovenox 40mg in AM if not dispo 08/16/17 -cont lovenox 40mg 08/17/17 -cont lovenox 40mg Results - Labs Result Diagrams: 08/13/17 12:35 08/16/17 06:30 DVT/PE Assessment - Risk for VTE Risk for VTE: No Risk Level: High Risk Assessment Date: 08/14/17 Risk Assessment Time: 11:13 VTE Orders Placed or Will Be Placed: Yes - Active Medicaitons Current Medications: Current Medications Acetaminophen (Tylenol 325mg) 650 mg PO Q6H PRN PRN Reason: PAIN/TEMP Carbidopa/Levodopa (Sinemet) 1.5 each PO 0600,0900,1200,1500 [facility] Last Admin: 08/18/17 12:28 Dose: 1.5 each Carbidopa/Levodopa (Sinemet) 1.5 each PO 1800,2100 [facility] Last Admin: 08/17/17 22:24 Dose: 1.5 each Clonazepam (Klonopin) 1 mg PO QHS [facility] Last Admin: 08/17/17 22:26 Dose: 1 mg Clonazepam (Klonopin) 1 mg PO DAILY PRN PRN Reason: ANXIETY/AGITATION Last Admin: 08/14/17 16:52 Dose: 1 mg Enoxaparin Sodium (Lovenox) 40 mg SQ DAILY [facility] Last Admin: 08/18/17 09:57 Dose: 40 mg Sodium Chloride () 1,000 mls @ 100 mls/hr IV .Q10H PRN PRN Reason: LARGE VOLUME IV Last Admin: 08/14/17 11:30 Dose: 100 mls/hr Olanzapine (Zyprexa) 10 mg PO DAILY PRN PRN Reason: aggression Last Admin: 08/17/17 23:07 Dose: 10 mg Pantoprazole Sodium (Protonix) 40 mg PO QHS [facility] Last Admin: 08/17/17 22:27 Dose: 40 mg AMI Plan - Labs Result Diagrams: 08/13/17 12:35 08/16/17 06:30
[2017-08-18] MEDS: CLONAZEPAM 1MG TABLET PO SCH (21:11)
[2017-08-18] MEDS: PANTOPRAZOLE SODIUM 40 MG TABLET PO SCH (21:11)
[2017-08-19] MEDS: CARBIDOPA/LEVODOPA 25MG/100MG TABLET PO SCH ×6 (05:21→21:31)
[2017-08-19] MEDS: ENOXAPARIN 40 MG/0.4 ML SYR SQ SCH (09:13)
--- NOTE | 2017-08-19 09:41 | Physician Progress Note ---
Subjective - Date Date of Physician Progress Note: 08/19/17 Objective - Vital Signs Vital Signs: Vital Signs - Last 24 Hrs Temp Pulse Resp BP BP Pulse Ox 08/19/17 05:47 98.1 F 74 18 106/58 97 08/18/17 21:00 85 18 08/18/17 20:20 98.1 F 85 18 101/62 98 08/18/17 16:00 97.7 F 76 18 94/61 93 L 08/18/17 12:00 98 F 70 18 100/55 95 08/18/17 10:00 97.7 F 76 18 94/45 94 L - General General Appearance: No acute distress Limitations: Altered mental status - Head Head exam: Atraumatic, Normocephalic, Normal inspection Head exam detail: negative: Abrasion, Contusion, Martínez's sign, General tenderness, Hematoma, Laceration - Eye Eye exam: Normal appearance. negative: Conjunctival injection, Periorbital swelling, Periorbital tenderness, Scleral icterus - ENT ENT exam: Mucous membranes dry Ear exam: negative: Auricular hematoma, Auricular trauma Nasal Exam: negative: Active bleeding, Discharge, Dried blood, Foreign body Mouth exam: negative: Drooling, Laceration, Muffled voice, Tongue elevation - Neck Neck exam: Normal inspection. negative: Meningismus, Tenderness - Respiratory Respiratory exam: Normal lung sounds bilaterally. negative: Rales, Respiratory distress, Rhonchi, Stridor - Cardiovascular Cardiovascular Exam: Regular rate, Normal rhythm, Normal heart sounds Peripheral Pulses: 2+: Radial (R), Radial (L), Dorsalis Pedis (R), Dorsalis Pedis (L) - GI/Abdominal GI/Abdominal exam: Soft. negative: Rebound, Rigid, Tenderness - Rectal Rectal exam: Deferred - exam: Deferred - Extremities Extremities exam: Normal inspection, Other (Mild shuffling movements to the upper extremities bilaterally) - Back Back exam: Denies: CVA tenderness (R), CVA tenderness (L) - Neurological Neurological exam: Altered, Other (Cannot assess as the patient is not following commands/answering questions on examination) - Psychiatric Psychiatric exam: Flat affect - Skin Skin exam: Normal color. negative: Abrasion Type of lesion: negative: abrasion Assessment and Plan - Assessment and Plan (1) Agitation Current Visit: Yes Status: Acute Base Code: R45.1 - RESTLESSNESS AND AGITATION Comment: 08/14/17 -pt was aggressive 08/15/17 -pt has not been aggressive this AM, PRN remains for aggressive behavior 08/16/17 -pt did not req HS zyprexa and has been flat and less resitive to care today, still awaiting placement 08/17/17 -pt became aggitated and aggressive last night, required Zyprexa last night. 08/18/17 -pt req zyprexa last night but was reported to have significant improvment after medication with ambulation, able to express basic needs and less aggressive -tolerating feeding today, up in chair for lunch -08/19/17 -pt required zyprexa at HS -this am appears to be having visual hallucinations again, grabbing at something in the air but not being aggressive at this time (2) Parkinson disease, symptomatic Current Visit: Yes Status: Chronic Base Code: G20 - PARKINSON'S DISEASE Comment: 08/14/17 -Pt has wax/wane Parkinson's symptoms - reports aggression, repeated falls at home, and now refusal to eat/drink or take meds -admission for rehydration and return to home medications 08/15/17 -pt has been tolerating PO meds with food -increased PO intake, IVF held 08/16/17 -pt is accepting PO intake and meds -not aggressive today, did not require PRN meds at HS yesterday -awaiting placement 08/17/17 -pt continues to eat and take meds PO -remains total feed -awaiting placment 08/18/17 -awaiting placement -will contact [facility] about pt current condition saturday08/19/17 -48 hr medicare notice given today -pt applied for Medicaid this -not able to sent to [employer] at this time r/t unable to pay 1 month upfront -[facility] declined r/t Parkinson's being med dx not apporpriate for that facility -[facility] did not have beds and declined to review since -[facility] denied -Pt insiting physician only update her on POC, pt current DX, and home instructions -Kendra ROSE with [facility] being contacted by Dwayne Ghotra (3) DVT prophylaxis Current Visit: Yes Status: Acute Base Code: [id number] - Comment: 08/15/17 -starting lovenox 40mg in AM if not dispo 08/16/17 -cont lovenox 40mg 08/17/17 -cont lovenox 40mg 08/19/14 -cont lovenox 40mg Results - Labs Result Diagrams: 08/13/17 12:35 08/16/17 06:30 DVT/PE Assessment - Risk for VTE Risk for VTE: No Risk Level: High Risk Assessment Date: 08/14/17 Risk Assessment Time: 11:13 VTE Orders Placed or Will Be Placed: Yes - Active Medicaitons Current Medications: Current Medications Acetaminophen (Tylenol 325mg) 650 mg PO Q6H PRN PRN Reason: PAIN/TEMP Carbidopa/Levodopa (Sinemet) 1.5 each PO 0600,0900,1200,1500 [facility] Last Admin: 08/19/17 09:05 Dose: 1.5 each Carbidopa/Levodopa (Sinemet) 1.5 each PO 1800,2100 [facility] Last Admin: 08/18/17 21:10 Dose: 1.5 each Clonazepam (Klonopin) 1 mg PO QHS [facility] Last Admin: 08/18/17 21:11 Dose: 1 mg Clonazepam (Klonopin) 1 mg PO DAILY PRN PRN Reason: ANXIETY/AGITATION Last Admin: 08/14/17 16:52 Dose: 1 mg Enoxaparin Sodium (Lovenox) 40 mg SQ DAILY [facility] Last Admin: 08/19/17 09:13 Dose: 40 mg Sodium Chloride () 1,000 mls @ 100 mls/hr IV .Q10H PRN PRN Reason: LARGE VOLUME IV Last Admin: 08/14/17 11:30 Dose: 100 mls/hr Olanzapine (Zyprexa) 10 mg PO DAILY PRN PRN Reason: aggression Last Admin: 08/17/17 23:07 Dose: 10 mg Pantoprazole Sodium (Protonix) 40 mg PO QHS [facility] Last Admin: 08/18/17 21:11 Dose: 40 mg AMI Plan - Labs Result Diagrams: 08/13/17 12:35 08/16/17 06:30
--- NOTE | 2017-08-19 11:37 | Rehab Evaluation ---
Patient Information - Patient Information Diagnosis: altered mental status, agitation Ordered Treatment: OT Evaluate and Treat Status: Initial Evaluation Surgery: No Past Medical/Surgical Hx: PAST MEDICAL/SURGICAL HISTORY Past Surgical History Shoulder scope-right Cholecystectomy Inguinal hernia repair Brain surgery (2011, for Parkinson's) PMH - Respiratory Hx Respiratory Disorders No PMH - Cardiovascular Hx Cardiovascular Disorders No PMH - Neuro Hx Neurological Disorders Yes Hx Dementia Yes Hx Parkinson's Disease Yes Hx Speech Problem Yes Comment: brain stimulator placed for parkinson's 2011 PMH - GI Hx Gastrointestinal Disorders Yes Hx Gastroesophageal Reflux Yes PMH - Hx Genitourinary Disorders No Hx Urinary Tract Infection Yes: PMH - Endocrine Hx Endocrine Disorders No Hx Diabetes No Hx Thyroid Disease No PMH - Musculoskeletal Hx Musculoskeletal Disorders Yes Hx Arthritis Yes Comment: hip pain/problems PMH - Psych Hx Psychiatric Problems Yes Hx Depression Yes: d/t Parkinon's PMH - Hematology/Oncology Hx Hematology/Oncology No Disorders Premorbid Status: Detail (Per pt's she is his primary caregiver. He was inconsistently able to ambulate with multi-wheeled walker, feed self and complete toileting, dressing and bathing. He has a tub/shower combination with tub bench. He has a tere sized bed which has an elevating HOB.) Precautions: [place], Fall, Other (Agitation, impaired communication) - Time With Patient Total Time Spent With Patient (Min): 30 Treatment Procedures: Detail (OT eval) Subjective Information - Subjective Information Other (Per spouse) Objective Data - Pain Pain Present: Unable to Respond (Pt unable to state presence of pain.) - Mental Status Patient Orientation: Person (Pt able to open eyes and respond to verbal cues approx. 50% of the time. He verbalized 2-3 words during evaluation although words were difficult to understand.) - Visual Perception Other (Unable to formally assess. Pt wears glasses at all times.) - ROM Not within normal limits (Not able to formally assess although he was able to move molly UEs during functional activities.) - Strength/Tone Within normal limits (Per observation pt demonstrates 4+/5 strength throughout molly UEs although not able to formally assess.) - Coordination Deficit (Pt had difficulty holding onto comb. Per observation pt's coordination appears impaired.) - Bed Mobility Needs Assist (Pt required mod assist for supine to sit at EOB.) - Transfers Needs Assist (Mod assist for sit to stand from EOB to walker.) - Balance Balance Sitting: Fair Balance Standing: Poor - Sensation Intact (Intact per observation.) - Gait Detail (Pt ambulated approx. 5 feet with multiwheeled walker and mod assist for moving walker and to amb to chair.) - ADL's/IADL's Detail (Pt able to raise arms to assist with donning gown, he was unable to comb hair. All ADLs completed with max to total assist from family or nursing.) Therapy Assessment - Therapy Assessment Detail (Pt presents with significantly impaired functional mobility, significantly impaired Ind with self care tasks and decreased cognition/ responsiveness.) Problem List - Problem List Occupational Therapy Problem List: Detail (1. Decreased Ind with functional mobility 2. Decreased cognition 3. Decreased Ind with self cares.) Goals - Goals Occupational Therapy Goals: 1. Pt will require min assist or less with bed mobility and ambulating short distances. 2. Pt will be able to follow verbal commands to allow safety with mobility. 3. Pt will require min assist or less with UE dressing. Prognosis - Prognosis Moderate Plan - Plan Occupational Therapy Plan: OT will cont. 2-4 additional visits and will continue to address functional mobility/ADLs/safety to allow return home with . Continue to monitor rehab potential and at this point I would recommend home therapy to provide caregiver education as well as to maximize pts safety and Ind.
--- NOTE | 2017-08-19 12:32 | Rehab Evaluation ---
Patient Information - Patient Information Diagnosis: altered mental status, agitation Ordered Treatment: PT Evaluate and Treat Status: Initial Evaluation Surgery: No Past Medical/Surgical Hx: PAST MEDICAL/SURGICAL HISTORY Past Surgical History Shoulder scope-right Cholecystectomy Inguinal hernia repair Brain surgery (2011, for Parkinson's) PMH - Respiratory Hx Respiratory Disorders No PMH - Cardiovascular Hx Cardiovascular Disorders No PMH - Neuro Hx Neurological Disorders Yes Hx Dementia Yes Hx Parkinson's Disease Yes Hx Speech Problem Yes Comment: brain stimulator placed for parkinson's 2011 PMH - GI Hx Gastrointestinal Disorders Yes Hx Gastroesophageal Reflux Yes PMH - Hx Genitourinary Disorders No Hx Urinary Tract Infection Yes: PMH - Endocrine Hx Endocrine Disorders No Hx Diabetes No Hx Thyroid Disease No PMH - Musculoskeletal Hx Musculoskeletal Disorders Yes Hx Arthritis Yes Comment: hip pain/problems PMH - Psych Hx Psychiatric Problems Yes Hx Depression Yes: d/t Parkinon's PMH - Hematology/Oncology Hx Hematology/Oncology No Disorders Premorbid Status: Detail (Per pt's she is his primary caregiver. He was inconsistently able to ambulate with multi-wheeled walker, feed self and complete toileting, dressing and bathing. He has a tub/shower combination with tub bench. He has a tere sized bed which has an elevating HOB. Patient also has a transport chair which he was using at times with assistance from his . ) Precautions: [place], Fall, Other (Agitation, impaired communication) - Time With Patient Total Time Spent With Patient (Min): 30 Treatment Procedures: Detail (Initial Evaluation.) Subjective Information - Subjective Information Per Patient (The patient was sleeping when PT arrived. The patient was easy to rouse.) Objective Data - Mental Status Patient Orientation: Person (The patient inconsisently followed commands. The patient verbalized minimally. The patient did read PT's badge and correctly verbalized name.) - Visual Perception Deficit (The patient wears glasses.) - ROM Within normal limits (The patient's LE AROM was not formally tested due to mental status, however the patient's ROM was WFL.) - Strength/Tone Other (The patient's LE strength was not formally tested secondary to mental status, however the patient's strength was functional. The patient's tone was fluctuating, however increased tone was present throughout -bilateral UE and LE' s and trunk ie: patient appeared to have difficulty releasing both hands from objects (needing assist to release).) - Bed Mobility Needs Assist (Moderate PA of 1 with supine to sit and maximal verbal cues and encouragement to complete.) - Transfers Needs Assist (Moderate PA of 1, plus one to assist with hand placement. ( Patient grabbed PT's arm instead of U walker.) - Balance Balance Sitting: Fair Balance Standing: Poor (The patient required support of walker to stand.) - Gait Detail (The patient ambulated 3 feet to recliner chair with multiwheeled walker with CG of 1, Moderate PA of 1 to move walker. The patient was unable to use brakes.) Therapy Assessment - Therapy Assessment Detail (The patient requires assistance with all mobility and transfers. According to Nursing staff and his the patient ambulated in diaz with staff this weekend. Patient's physical ability appears to wax and wan. The patient also exhibited agitation/ agressive behavior at times ie: grabbing PT when standing, throwing comb. The patient's behaviors were succesfully redirected. The patient's who present throughout PT/OT eval stated patient usually assisted more with mobility and verbalized more. Feel the patient would benefit from short term inpatient PT to return the patient if possible to previous functional level.) Problem List - Problem List Physical Therapy Problem List: Detail (1) Assistance with mobility and ambulation 2) Mental status/ aggressive behaviors 3) Increased muscle tone throughout) Goals - Goals Physical Therapy Goals: 1) The patient will acheive bed mobility with CG/ supervison for safety. 2) The patient will consistently ambulate household distances with minimal assist/CG of 1. 3) The patient will acheive sit to stand with CG/Minimal PA of 1 Prognosis - Prognosis Moderate Plan - Plan Physical Therapy Plan: PT 1 time a day M-F for bed mobilty, transfers and gait training to return to previous functional level until discharge from [facility].
[2017-08-19] MEDS: PANTOPRAZOLE SODIUM 40 MG TABLET PO SCH (21:31)
[2017-08-19] MEDS: CLONAZEPAM 1MG TABLET PO SCH (21:32)
[2017-08-20 02:29] LABS: URINE APPEARANCE CLEAR; URINE BILIRUBIN NEGATIVE (NEGATIVE); URINE BLOOD NEGATIVE (NEGATIVE); URINE COLOR STRAW; URINE GLUCOSE (UA) NEGATIVE (NEGATIVE); URINE KETONE TRACE (NEGATIVE); URINE LEUKOCYTE ESTERASE NEGATIVE (NEGATIVE); URINE NITRITE NEGATIVE (NEGATIVE); URINE PROTEIN TRACE (NEGATIVE); URINE UROBILINOGEN 0.2 E.U./dL (0.20 - 1.00)
[2017-08-20] MEDS: CARBIDOPA/LEVODOPA 25MG/100MG TABLET PO SCH ×6 (06:48→21:13)
[2017-08-20] MEDS: ENOXAPARIN 40 MG/0.4 ML SYR SQ SCH (09:15)
--- NOTE | 2017-08-20 11:52 | Physical Therapy Tx Note ---
Physical Therapy Tx Note - Treatment Note Tolerated: Good Total Time Spent With Patient: 15 Physical Therapy Tx Note: Detail (The patient was in Bathroom when therapists arrived. OT completed ADL's prior to PT treatment. The patient completed sit to and from stand transfer with CG for safety only. The patient ambulated with his U walker with CG of 1 for safety only a distance of 60 feet x 1. The patient was able to appropriately use breaks. The patient's gait pattern was charecterized by decreased stride length, flexed posture of hips and knees and increased hip adduction , internal rotation during bilateral swing phases. The patient was communicating with OT and PT appropriately. The patient's was present during treatment. The patient was left in recliner chair with chair alarm turned on and present.) Physical Therapy Problem List: Detail (1) Assistance with mobility and ambulation 2) Mental status/ aggressive behaviors 3) Increased muscle tone throughout) Physical Therapy Goals: 1) The patient will acheive bed mobility with CG/ supervison for safety. 2) The patient will consistently ambulate household distances with minimal assist/CG of 1. 3) The patient will acheive sit to stand with CG/Minimal PA of 1 Physical Therapy Plan: PT 1 time a day M-F for bed mobilty, transfers and gait training to return to previous functional level until discharge from [facility].
--- NOTE | 2017-08-20 11:56 | Occupational Therapy Tx Note ---
Occupational Therapy Tx Note - Treatment Note Tolerated: Good Total Time Spent With Patient: 15 (ADL) Occupational Therapy Treatment Note: Detail (S: Pt alert and pleasant today. O : Pt completed toileting in sitting with assist for briefs, he was able to complete toileting hygiene Indly in sitting. Sit to stand with min assist and amb to sink with hand held assist x 2. Pt able to stand at sink and wash hands Indly, he was able to complete oral hygiene with assist to apply toothpaste to toothbrush. Pt amb back to chair with hand held assist x 1. He donned hospital pants with min assist from to start over feet, sit to stand with CG assist and pulled pants over hips Indly, he required mod assist to tie pants at waist. A: Pt required min assist for toileting, oral hygiene and mod assist to don pants. Significantly improved cognition today, able to participate in therapy and he was appropriate and cooperative.) Occupational Therapy Problem List: Detail (1. Decreased Ind with functional mobility 2. Decreased cognition 3. Decreased Ind with self cares.) Occupational Therapy Goals: 1. Pt will require min assist or less with bed mobility and ambulating short distances. 2. Pt will be able to follow verbal commands to allow safety with mobility. 3. Pt will require min assist or less with UE dressing. Prognosis: Moderate Occupational Therapy Plan: OT will cont. 2-4 additional visits and will continue to address functional mobility/ADLs/safety to allow return home with . Continue to monitor rehab potential and at this point I would recommend home therapy to provide caregiver education as well as to maximize pts safety and Ind.
[2017-08-20] MEDS: CLONAZEPAM 1MG TABLET PO SCH (21:14)
[2017-08-20] MEDS: PANTOPRAZOLE SODIUM 40 MG TABLET PO SCH (21:14)
--- NOTE | 2017-08-20 21:22 | Physician Progress Note ---
Subjective - Date Date of Physician Progress Note: 08/20/17 - Subjective Subjective Comment: 08/20/17 Pt. has been alert, appropriate, and cooperative this morning. He sat up in his chair and fed himself breakfast. No aggression. Per nursing staff, he has greatly improved. Pt. met with [facility] today, transfer accepted and plan to d /c pt. tomorrow morning. Objective - Vital Signs Vital Signs: Vital Signs - Last 24 Hrs Temp Pulse Pulse Resp BP BP Pulse Ox 08/20/17 20:24 89 16 08/20/17 16:00 97.9 F 89 16 125/66 97 08/20/17 12:00 97.7 F 96 H 14 123/70 97 08/20/17 09:00 72 16 08/20/17 08:00 97.8 F 85 16 108/84 98 08/19/17 22:00 98.3 F 87 16 146/78 98 - General General Appearance: No acute distress Limitations: Altered mental status - Head Head exam: Atraumatic, Normocephalic, Normal inspection Head exam detail: negative: Abrasion, Contusion, Martínez's sign, General tenderness, Hematoma, Laceration - Eye Eye exam: Normal appearance. negative: Conjunctival injection, Periorbital swelling, Periorbital tenderness, Scleral icterus - ENT ENT exam: Mucous membranes dry Ear exam: negative: Auricular hematoma, Auricular trauma Nasal Exam: negative: Active bleeding, Discharge, Dried blood, Foreign body Mouth exam: negative: Drooling, Laceration, Muffled voice, Tongue elevation - Neck Neck exam: Normal inspection. negative: Meningismus, Tenderness - Respiratory Respiratory exam: Normal lung sounds bilaterally. negative: Rales, Respiratory distress, Rhonchi, Stridor - Cardiovascular Cardiovascular Exam: Regular rate, Normal rhythm, Normal heart sounds Peripheral Pulses: 2+: Radial (R), Radial (L), Dorsalis Pedis (R), Dorsalis Pedis (L) - GI/Abdominal GI/Abdominal exam: Soft. negative: Rebound, Rigid, Tenderness - Rectal Rectal exam: Deferred - exam: Deferred - Extremities Extremities exam: Normal inspection, Other (Mild shuffling movements to the upper extremities bilaterally) - Back Back exam: Denies: CVA tenderness (R), CVA tenderness (L) - Neurological Neurological exam: Altered, Other (Cannot assess as the patient is not following commands/answering questions on examination) - Psychiatric Psychiatric exam: Flat affect - Skin Skin exam: Normal color. negative: Abrasion Type of lesion: negative: abrasion Assessment and Plan - Assessment and Plan (1) Agitation Current Visit: Yes Status: Acute Base Code: R45.1 - RESTLESSNESS AND AGITATION Comment: 08/20/17 -Pt. has not been aggressive today, he has been alert and cooperative (2) Parkinson disease, symptomatic Current Visit: Yes Status: Chronic Base Code: G20 - PARKINSON'S DISEASE Comment: 08/20/17 -Pt has wax/wane Parkinson's symptoms -Pt. has not been aggressive today, he has been alert and appropriate, sitting up and feeding himself breakfast -admission for rehydration and return to home medications -pt has been tolerating PO meds with food -increased PO intake, IVF held -placement accepted, plan to d/c tomorrow (3) DVT prophylaxis Current Visit: Yes Status: Acute Base Code: [id number] - Comment: 08/20/14 -cont lovenox 40mg (4) Full code status Current Visit: Yes Status: Acute Base Code: Z78.9 - OTHER SPECIFIED HEALTH STATUS Comment: 08/20/17- pt. is full code Results - Labs Result Diagrams: 08/13/17 12:35 08/16/17 06:30 Labs Last 24 Hours: Laboratory Results - last 24 hr 08/19/17 Unknown Urine Color Straw Urine Appearance Clear Urine pH 7.5 Ur Specific [place] 1.015 Urine Protein Trace H Urine Glucose (UA) Negative Urine Ketones Trace H Urine Blood Negative Urine Nitrite Negative Urine Bilirubin Negative Urine Urobilinogen 0.2 Ur Leukocyte Esterase Negative DVT/PE Assessment - Risk for VTE Risk for VTE: No Risk Level: High Risk Assessment Date: 08/14/17 Risk Assessment Time: 11:13 VTE Orders Placed or Will Be Placed: Yes - Active Medicaitons Current Medications: Current Medications Acetaminophen (Tylenol 325mg) 650 mg PO Q6H PRN PRN Reason: PAIN/TEMP Last Admin: 08/19/17 14:19 Dose: 650 mg Carbidopa/Levodopa (Sinemet) 1.5 each PO 0600,0900,1200,1500 [facility] Last Admin: 08/20/17 16:12 Dose: 1.5 each Carbidopa/Levodopa (Sinemet) 1.5 each PO 1800,2100 [facility] Last Admin: 08/20/17 18:42 Dose: 1.5 each Clonazepam (Klonopin) 1 mg PO QHS [facility] Last Admin: 08/19/17 21:32 Dose: 1 mg Clonazepam (Klonopin) 1 mg PO DAILY PRN PRN Reason: ANXIETY/AGITATION Last Admin: 08/14/17 16:52 Dose: 1 mg Enoxaparin Sodium (Lovenox) 40 mg SQ DAILY [facility] Last Admin: 08/20/17 09:15 Dose: 40 mg Sodium Chloride () 1,000 mls @ 100 mls/hr IV .Q10H PRN PRN Reason: LARGE VOLUME IV Last Admin: 08/14/17 11:30 Dose: 100 mls/hr Olanzapine (Zyprexa) 10 mg PO DAILY PRN PRN Reason: aggression Last Admin: 08/17/17 23:07 Dose: 10 mg Pantoprazole Sodium (Protonix) 40 mg PO QHS [facility] Last Admin: 08/19/17 21:31 Dose: 40 mg AMI Plan - Labs Result Diagrams: 08/13/17 12:35 08/16/17 06:30
[2017-08-20] MEDS: OLANZAPINE 5MG TABLET PO PRN (23:23)
[2017-08-21] MEDS: CARBIDOPA/LEVODOPA 25MG/100MG TABLET PO SCH ×4 (05:28→14:20)
[2017-08-21] MEDS: ENOXAPARIN 40 MG/0.4 ML SYR SQ SCH (09:00)
--- NOTE | 2017-08-21 10:34 | Discharge Summary ---
Providers Discharge Summary Date: 08/21/17 Date of admission: 08/13/17 15:55 Expected Date of Discharge: 08/21/17 Attending physician: YOSELYN ROSE Primary care physician: JANNY BEASLEY M.D. Physical Exam - Vital Signs Vital Signs: Vital Signs - Last 24 Hrs Temp Pulse Resp BP BP Pulse Ox 08/21/17 09:00 16 08/21/17 08:00 98.4 F 76 16 107/63 97 08/20/17 20:24 89 16 08/20/17 16:00 97.9 F 89 16 125/66 97 08/20/17 12:00 97.7 F 96 H 14 123/70 97 - General General Appearance: No acute distress Limitations: Altered mental status - Head Head exam: Atraumatic, Normocephalic, Normal inspection Head exam detail: negative: Abrasion, Contusion, Martínez's sign, General tenderness, Hematoma, Laceration - Eye Eye exam: Normal appearance. negative: Conjunctival injection, Periorbital swelling, Periorbital tenderness, Scleral icterus - ENT ENT exam: Mucous membranes dry Ear exam: negative: Auricular hematoma, Auricular trauma Nasal Exam: negative: Active bleeding, Discharge, Dried blood, Foreign body Mouth exam: negative: Drooling, Laceration, Muffled voice, Tongue elevation - Neck Neck exam: Normal inspection. negative: Meningismus, Tenderness - Respiratory Respiratory exam: Normal lung sounds bilaterally. negative: Rales, Respiratory distress, Rhonchi, Stridor - Cardiovascular Cardiovascular Exam: Regular rate, Normal rhythm, Normal heart sounds Peripheral Pulses: 2+: Radial (R), Radial (L), Dorsalis Pedis (R), Dorsalis Pedis (L) - GI/Abdominal GI/Abdominal exam: Soft. negative: Rebound, Rigid, Tenderness - Rectal Rectal exam: Deferred - exam: Deferred - Extremities Extremities exam: Normal inspection, Other (Mild shuffling movements to the upper extremities bilaterally) - Back Back exam: Denies: CVA tenderness (R), CVA tenderness (L) - Neurological Neurological exam: Altered, Other (Cannot assess as the patient is not following commands/answering questions on examination) - Psychiatric Psychiatric exam: Flat affect - Skin Skin exam: Normal color. negative: Abrasion Type of lesion: negative: abrasion Hospitalization - Hospitalization Admission Diagnosis: Altered mental status. Agitation - Problem List/Discharge Diagnosis (1) Agitation Current Visit: Yes Status: Acute Base Code: R45.1 - RESTLESSNESS AND AGITATION Comment: 08/21/17 -Pt. has not been aggressive today, he has been alert and cooperative (2) Parkinson disease, symptomatic Current Visit: Yes Status: Chronic Base Code: G20 - PARKINSON'S DISEASE Comment: 08/21/17 -Pt has wax/wane Parkinson's symptoms -Pt. has not been aggressive today, he has been alert and appropriate, sitting up and feeding himself breakfast -admission for rehydration and return to home medications -pt has been tolerating PO meds with food -increased PO intake, IVF held -placement accepted, plan to d/c this afternoon- pt. to continue ativan and klonipin for agitation (3) DVT prophylaxis Current Visit: Yes Status: Acute Base Code: [id number] - Comment: 08/21/14 -Pt. is d/c to long-term placement- will not continue prophylaxis (4) Full code status Current Visit: Yes Status: Acute Base Code: Z78.9 - OTHER SPECIFIED HEALTH STATUS Comment: 08/21/17- pt. is full code - Disposition Transfer to [facility] for long-term placement - Hospitalization Course Disposition: [facility] Hospital Course: 67 yo male presents with for increased agitation, decreased PO intake in relation to Parkinsons. PMH Parkinsons, constipation, GERD, anxiety. Pt was seen in ED 08/07/17 for altered mental status but improved after rehydration and then was d/c'd home with . Case was presented to [facility] ER ( per report) and declined admission, PCP Kendra ROSE contacted, sinimeleigh and jane changed for home care and is primary finish patcher. ER Pt presented to ER again 08/13/17 for same, decreased PO intake and altered mental status and additionally aggression. Pt reported some aggression at home and ER provider reports pt was pulling at staff, attempting to pull out IV and becoming very aggitated with basic care and maintaining safety. Zyprexa IM was given and reported that behavior improved. Given- 1L NS bolus with NS @ 100 maintainence, 10mg Zyprexa IM UA negavitve for infection WBC 6.5, Hgb 16, Hct 46.9, plt 250 NA 144, K 3.5, Cl 00, CO2 26, BUN 16, creatinine 0.8, GFR >60, glucose 98 LFTs WNL Temp 97.4 F, HR 76, RR 16, BP 150/71, 98% RA CXR, CT head and neck completed on 08/07/17 reviewed as negative and no repeat completed as no reported recent falls at home. Pt did fall 08/07/17 per ED report , found pt down. Admission for altered mental status, dehydration and aggression encouraged to be present in the AM for provider and SW rounding while inpt. 08/13/[address] head ordered r/t recent fall and continued AMS and agitation Repeat is negative for acute process 08/21/17 Pt's vital signs have remained stable, his Parkinson's symptoms have been well controlled with medication maintenance- he has overall been less aggressive than he was initially. Plan to transfer to [facility] this afternoon for long- term placement. PCP Specialist: Doreen ROSE with [facility] Neurology Procedures: Imaging and X-Rays 08/13/17 18:10 HEAD WO CONTRAST [CT] Stat 08/14/17 09:35 ABDOMEN 2 VIEW [RAD] Stat Cardiology Procedures 08/13/17 11:58 EKG NOW Abnormal Labs: Abnormal Lab Results 08/13/17 08/13/17 08/13/17 Range/Units 12:35 12:35 13:40 MCV 99.6 H (81-97) fl MCH 34.0 H (27-33) pg Monocytes % 11.9 H (0-9) % Anion Gap 18.0 H (7-16) Urine Protein (NEGATIVE) Urine Ketones Trace H (NEGATIVE) 08/19/17 Range/Units Unknown MCV (81-97) fl MCH (27-33) pg Monocytes % (0-9) % Anion Gap (7-16) Urine Protein Trace H (NEGATIVE) Urine Ketones Trace H (NEGATIVE) Condition at Discharge: (2) Stable Discharge Diagnosis: Advanced Parkinson's, altered mental status/agitation VTE Discharge VTE Reason For No Overlap Therapy: Not Indicated (d/c to long-term care facility ) Discharge Medications - Discharge Medications Home Medications: Ambulatory Orders Carbidopa/Levodopa 25Mg/100Mg [Sinemet] 1.5 tab PO Q3HR 10/24/16 [Last Taken 11/23] Clonazepam 1 mg PO BID 10/24/16 [Last Taken 08/13/17 11:00] Omeprazole [Prilosec] 20 mg PO DAILY 10/24/16 [Last Taken 08/13/17] Discharge Plan - Discharge Instructions Activity at Discharge: Resume Usual Activities As Tolerated Diet at Discharge: Regular Diet Additional Instructions: Transfer of care to [facility] Quality Measures - Quality Measures Quality Measures: Advance Directives, Documentation of Current Medications in Medical Record, Elder Maltreatment Screen and Follow-Up Plan, Screening for High Blood Pressure and F/U Documented - Current Medications Quality Measure: Measure #130: Documentation of Current Medications Documentation of Current Medications: <Current Medications Documented/Reviewed> [G8427] - Blood Pressure Screening Quality Measure: Screening for High Blood Pressure and Follow-Up Documented Does Patient Have Any of the Following: No, Active Dx of HTN Blood Pressure Classification: Normal BP Reading Systolic Measurement: 106 Diastolic Measurement: 58 Screening for High Blood Pressure: < Normal BP, F/U Not Required > [G8783] - Advance Directives Quality Measure: Measure #47: Care Plan Advance Directives Established: Yes Advance Directives Information Provided To Patient: Declined Advance Directives on File: No Living Will: Yes Power of Pole Peeler: Yes Power of Pole Peeler Name: KEVIN BETHEA () Advance Care Planning: <Care Plan/Decision Maker Documented; Discussed & Documented> [9253F] - Elder Abuse Suspicion Index Screening: Elder Abuse Suspicion Index Screening Rely on people for bathing, dressing, shopping, banking, etc: Yes Prevented from getting food, clothes, medication, etc: No Made to feel shamed or threatened by someone: No Forced to sign papers or use money against will: No Feel afraid, touched in ways not wanted or hurt physically: No Poor eye contact, withdrawn, malnourished, cuts or bruises: No Screening Result: Negative result EASI Reference Information: Mary Ellen PEACOCK, Donald C, Sharita D, Twan Beavers.Development and validation of a tool to assist physicians identification of elder abuse: The Elder Abuse Suspicion Index (EASI ). Journal of Elder Abuse and Neglect, 2008; 20 (3): 276-300. - Elder Maltreatment Screen Quality Measures: Elder Maltreatment Screen and Follow-Up Plan Elder Maltreatment Screen: <Negative, No Follow-Up Plan Required> [G8734]
== END 2017-08-21 14:30 | DRG 884 ==
LOC: ER 11:48 → MEDSURG 15:55
PROVIDERS: ADMIT Internal Medicine; ATTEND Internal Medicine
DX: R45.1 Restlessness and agitation (principal); G20 Parkinson's disease; F41.8 Other specified anxiety disorders; K59.00 Constipation, unspecified; M19.90 Unspecified osteoarthritis, unspecified site; Z96.9 Presence of functional implant, unspecified; K21.9 Gastro-esophageal reflux disease without esophagitis
CPT/HCPCS: 70450; 74019; 80048; 80053; 81003; 82140; 85025; 93005; 93010; 96360; 96361; 96372; 97530; 97535; 99223; 99232; 99233; 99239; 99285; J1650; J7030

== ENCOUNTER 2018-07-10 19:27 | Emergency (ER) | payer MEDICARE ==
--- NOTE | 2018-07-10 19:52 | Emergency Department Record ---
History of Present Illness - General Chief Complaint: Male Urogenital Problem Stated Complaint: POSS UTI, HALUCINATIONS Time Seen by Provider: 07/10/18 19:43 Source: Family Mode of Arrival: Wheelchair Limitations: Altered mental status - History of Present Illness Initial Comments: 68 yo male with a past medical history significant for parkinson's presents to ED for evaluation of confusion, visual hallucinations per his significant other. SO reports a history of intermittent episodes of dehydration previously with similar changes in mental status, however he has never experienced hallucinations previously. SO denies fevers, chills, cough, vomiting, or recent illness. SO does report urinary hesitance for approximately 1 week, believes he may have a UTI. MD Complaint: Altered mental status Onset/Timin -: Days(s) Severity: Moderate Consistency: Constant - Cr Coma Scale Eye Response: (4) Open spontaneously Motor Response: (5) Localizes to pain Verbal Response: (4) Confused conversation [place] Total: 13 - Related Data Home Medications Medication Instructions Recorded Confirmed Last Taken Donepezil HCl [Aricept] 10 mg PO DAILY 07/10/18 07/10/18 Unknown Oxcarbazepine [Trileptal] 150 mg PO DAILY 07/10/18 07/10/18 Unknown Oxcarbazepine [Trileptal] 300 mg PO QPM 07/10/18 07/10/18 Unknown Sertraline HCl [Zoloft] 10 mg PO DAILY 07/10/18 07/10/18 Unknown Temazepam [Restoril] 15 mg PO QHS 07/10/18 07/10/18 Unknown Allergies Allergy/AdvReac Type Severity Reaction Status Date / Time bupropion HCl Allergy HIVES Verified 08/13/17 11:53 [From Wellbutrin] Travel Screening - Travel/Exposure Within Last 30 Days Have you traveled within the last 30 days?: No - Travel Symptoms Symptom Screening: None Review of Systems ROS unobtainable: Other (Per SO) Constitutional: Denies: Chills, Fever, Malaise, Night sweats Eyes: Denies: Eye discharge, Eye pain ENT: Denies: Congestion, Ear pain, Epistaxis Respiratory: Denies: Cough, Dyspnea Cardiovascular: Denies: Chest pain, Dyspnea on exertion Endocrine: Denies: Fatigue, Heat or cold intolerance Gastrointestinal: Denies: Abdominal pain, Nausea, Vomiting Genitourinary: Reports: Retention. Denies: Urgency Musculoskeletal: Denies: Arthralgia, Back pain Skin: Denies: Bruising, Change in color Neurological: Reports: Confusion. Denies: Headache Psychiatric: Denies: Anxiety Hematological/Lymphatic: Denies: Anemia, Blood Clots Past Medical History - SOCIAL HISTORY Smoking Status: Never smoker - RESPIRATORY Hx Respiratory Disorders: No - CARDIOVASCULAR Hx Cardio Disorders: No - NEURO Hx Neuro Disorders: Yes Hx Dementia: Yes Hx Parkinson's Disease: Yes Hx Speech Problem: Yes Comment:: brain stimulator placed for parkinson's 2011 - GI Hx GI Disorders: Yes Hx Reflux: Yes - Hx Genitourinary Disorders: No Hx UTI: Yes () - ENDOCRINE Hx Endocrine Disorders: No Hx Diabetes: No Hx Thyroid Disease: No - MUSCULOSKELETAL Hx Musculoskeletal Disorders: Yes Hx Arthritis: Yes Comment:: hip pain/problems - PSYCH Hx Psych Problems: Yes Hx Depression: Yes (d/t Parkinon's) - HEMATOLOGY/ONCOLOGY Hx Hematology/Oncology Disorders: No Family Medical History Any Significant Family History?: Yes Hx Heart Disease: Father Hx HTN: Mother Hx Seizures: Children Physical Exam - General General Appearance: Alert, Oriented x3, Cooperative, Moderate distress Limitations: Altered mental status - Head Head exam: Atraumatic, Normocephalic, Normal inspection Head exam detail: negative: Abrasion, Contusion, Martínez's sign, General tenderness, Hematoma, Laceration - Eye Eye exam: Normal appearance. negative: Conjunctival injection, Periorbital swelling, Periorbital tenderness, Scleral icterus - ENT Ear exam: negative: Auricular hematoma, Auricular trauma Nasal Exam: negative: Active bleeding, Discharge, Dried blood, Foreign body Mouth exam: negative: Drooling, Laceration, Muffled voice, Tongue elevation - Neck Neck exam: Normal inspection. negative: Meningismus, Tenderness - Respiratory Respiratory exam: Normal lung sounds bilaterally. negative: Respiratory distress, Rhonchi, Stridor, Wheezes - Cardiovascular Cardiovascular Exam: Regular rate, Normal rhythm, Normal heart sounds - GI/Abdominal GI/Abdominal exam: Soft. negative: Rebound, Rigid, Tenderness - Rectal Rectal exam: Deferred - exam: Deferred - Extremities Extremities exam: Normal inspection. negative: Pedal edema, Tenderness - Back Back exam: Denies: CVA tenderness (R), CVA tenderness (L) - Neurological Neurological exam: Altered - Psychiatric Psychiatric exam: Other (Cannot assess due to mental status) - Skin Skin exam: Normal color. negative: Abrasion Type of lesion: negative: abrasion Course Vital Signs 07/10/18 19:36 Temperature 98.0 F Pulse Rate [ 94 H Pulse Ox Probe] Respiratory 24 Rate Blood Pressure 150/65 [Left Arm] - Reevaluation(s) Reevaluation #1: 07/10/18 21:09 Laboratory studies were reviewed and are grossly unremarkable for an acute process. WBC 5.9 UA appears clear of infection BUN 26/Creatinine 1.3 (GFR 59). EKG: NSR 97 Normal axis, mild IVCD No acute ST-T wave changes are present Reevaluation #2: 07/10/18 21:21 Patient was reassessed, SO updated on all results. Patient is now alert, answering questions, and appears significantly improved following IVFs. Will reassess when the patient's 1 Liter bolus has completed infusion. Reevaluation #3: 07/10/18 21:37 CT Brain: No acute intra-acranial process Artifact from intra-cranial leads are present. Reevaluation #4: 07/10/18 21:50 Patient was reassessed, continues to improved clinically. Following discussion with the patient and his re: observation in hospital, patient and his SO report that they would prefer to go home as he is back to his baseline. Patient and SO were counseled to return for any reoccurrence of his symptoms as well. Medical Decision Making - Lab Data Result diagrams: 07/10/18 20:05 07/10/18 20:05 Disposition Disposition: Discharge Clinical Impression: Dehydration Mental status alteration Qualifiers: Altered mental status type: transient alteration of awareness Qualified Code(s) : R40.4 - Transient alteration of awareness Disposition: Home, Self-Care Condition: (2) Stable Instructions: Dehydration (ED) Additional Instructions: Return to ED if your symptoms worsen or if you have any concerns. Follow-up with your family doctor in 3-5 days as directed. Forms: Patient Portal Access Time of Disposition: 21:52 Quality - Quality Measures Quality Measures: N/A - Blood Pressure Screening Does Patient Have Any of the Following: Active Dx of HTN Blood Pressure Classification: Hypertensive Reading Systolic Measurement: 145 Diastolic Measurement: 74 Screening for High Blood Pressure: Patient Exclusion, Hx of HTN [G9744]
[2018-07-10] MEDS ORDERED: 0.9 % SODIUM CHLORIDE 1000ML 1,000 ML IV SCH (20:00)
[2018-07-10 20:13] LABS: BASO % 0.5 % (0-6); EOS % 1.7 % (0-6); GRAN % 40.8 % (47-80); HEMATOCRIT 46.6 % (42.0-52.0); HEMOGLOBIN 15.5 gm/dl (14.0-18.0); LYMPH % 43.1 % (16-45); MEAN CORPUSCULAR HEMOGLOBIN 33.3 pg (27-33); MEAN CORPUSCULAR HGB CONC 33.3 g/dl (32-36); MEAN PLATELET VOLUME 8.5 fl (7.4-10.4); MONO % 13.9 % (0-9); PLATELET COUNT 269 K/uL (130-400); RED BLOOD COUNT 4.66 M/uL (4.40-5.70); RED CELL DISTRIBUTION WIDTH 13.9 % (11.5-14.5); WHITE BLOOD COUNT W/O DIFF 5.9 K/uL (4.2-12.2)
[2018-07-10 20:28] LABS: BLOOD UREA NITROGEN 26 mg/dL (8-23)
[2018-07-10 20:29] LABS: CREATININE 1.3 mg/dL (0.7-1.2); EST GLOMERULAR FILTRATION RATE 59 mL/min; TOTAL PROTEIN 7.2 g/dL (6.6-8.7)
[2018-07-10 20:31] LABS: GLUCOSE,RANDOM 112 mg/dL (74-109)
[2018-07-10 20:34] LABS: ALB/GLOB RATIO 1.5 (1.1-1.8); ALBUMIN 4.3 g/dL (4.0-5.0); ALKALINE PHOSPHATASE 60 U/L (40-129); ALT/SGPT < 5 U/L (<41); AST/SGOT 12 U/L (10.0-50.0)
[2018-07-10 20:39] LABS: AMMONIA 15 umol/L (16.0-60.0)
[2018-07-10 20:44] LABS: URINE APPEARANCE CLEAR; URINE BILIRUBIN NEGATIVE (NEGATIVE); URINE BLOOD NEGATIVE (NEGATIVE); URINE COLOR YELLOW; URINE GLUCOSE (UA) NEGATIVE (NEGATIVE); URINE KETONE 15 mg/dL (NEGATIVE); URINE LEUKOCYTE ESTERASE NEGATIVE (NEGATIVE); URINE NITRITE NEGATIVE (NEGATIVE); URINE PROTEIN NEGATIVE (NEGATIVE); URINE UROBILINOGEN 0.2 E.U./dL (0.20 - 1.00)
--- NOTE | 2018-07-12 20:39 | CT SCAN REPORT ---
EXAM: CT SCAN HEAD WO CONTRAST HISTORY: HALLUCINATIONS. TECHNIQUE: Noncontrast CT brain. COMPARISON: CT brain 08/13/2017. FINDINGS: Bilateral intracranial metallic leads, as seen previously. Associated metallic artifact limits visualization. No midline shift, mass effect, or abnormal intra or extraaxial fluid collection seen. No cerebral edema, focal mass, or intracranial hemorrhage detected. Ventricle sizes are similar from prior. Generalized cerebral volume loss appears unchanged. Basal cisterns are not effaced. The visualized paranasal sinuses are clear. No displaced calvarial fracture. IMPRESSION: 1. NO ACUTE INTRACRANIAL FINDINGS. 2. ARTIFACT FROM INTRACRANIAL METALLIC LEADS LIMITS VISUALIZATION. JOB NUMBER: [id number] MTDD
== END 2018-07-10 22:17 | disposition home or self-care (01) ==
LOC: ER 19:27
DX: E86.0 Dehydration (principal); R40.4 Transient alteration of awareness; I10 Essential (primary) hypertension; G20 Parkinson's disease; F02.80 Dementia in other diseases classified elsewhere, unspecified severity, without behavioral disturbance, psychotic disturbance, mood disturbance, and anxiety
CPT/HCPCS: 70450; 80053; 81003; 82140; 84484; 85025; 93005; 93010; 96360; 96361; 99284; J7030

== ENCOUNTER 2018-10-15 12:48 | Emergency (ER) | payer MEDICARE ==
--- NOTE | 2018-10-15 13:27 | Emergency Department Record ---
History of Present Illness - General Chief complaint: Weakness Stated complaint: lt leg pain Time Seen by Provider: 10/15/18 13:03 Source: Patient, RN notes reviewed Mode of Arrival: Wheelchair - History of Present Illness Initial comments: left upper leg pain and left hip pain and seen by visiting physician Dr Cortes 2 days ago at his house and he was in [place] [facility] 2 weeks ago and had his meds adjusted. He was in geropsych for 4 weeks and discharged October 03. No fever no vomiting BM's every 3 days and he is a total care patient his son and lift him into the chair. Patient has advanced Parkinson's disease and his neurologist is Dr Maguire at [facility] . His sinomet was reduced and than neurology increased him back to his original dose hoping he would get more motion back. Currently he is curled in a position Currently no mental status changes per family but he is not ambulatory for 2 months per family. Onset/Timin -: Week(s) Location: LLE Severity: Moderate Severity scale (1-10): 7 Quality: Aching Consistency: Intermittent Improves with: Other Associated Symptoms: Denies other symptoms - Cr Coma Scale Eye Response: (4) Open spontaneously Motor Response: (6) Obeys commands Verbal Response: (5) Oriented [place] Total: 15 - Related Data Home Medications Medication Instructions Recorded Confirmed Last Taken Gabapentin [Neurontin] 200 mg PO DAILY 10/15/18 10/15/18 Unknown Glycopyrrolate 1 mg PO TID 10/15/18 10/15/18 Unknown Oxcarbazepine [Trileptal] 50 mg PO TID 10/15/18 10/15/18 Unknown Pimavanserin Tartrate [Nuplazid] 34 mg PO DAILY 10/15/18 10/15/18 Unknown Rivastigmine [Exelon] 1 each TD DAILY 10/15/18 10/15/18 Unknown Trazodone HCl 50 mg PO QHS 10/15/18 10/15/18 Unknown Allergies Allergy/AdvReac Type Severity Reaction Status Date / Time bupropion HCl Allergy HIVES Verified 10/15/18 12:58 [From Wellbutrin] Travel Screening - Travel/Exposure Within Last 30 Days Have you traveled within the last 30 days?: No Past Medical History - SOCIAL HISTORY Smoking Status: Never smoker Alcohol Use: None Drug Use: None - RESPIRATORY Hx Respiratory Disorders: No - CARDIOVASCULAR Hx Cardio Disorders: No - NEURO Hx Neuro Disorders: Yes Hx Dementia: Yes Hx Parkinson's Disease: Yes Hx Speech Problem: Yes Comment:: brain stimulator placed for parkinson's 2011 - GI Hx GI Disorders: Yes Hx Reflux: Yes - Hx Genitourinary Disorders: No Hx UTI: Yes () - ENDOCRINE Hx Endocrine Disorders: No Hx Diabetes: No Hx Thyroid Disease: No - MUSCULOSKELETAL Hx Musculoskeletal Disorders: Yes Hx Arthritis: Yes Comment:: hip pain/problems - PSYCH Hx Psych Problems: Yes Hx Depression: Yes (d/t Parkinon's) - HEMATOLOGY/ONCOLOGY Hx Hematology/Oncology Disorders: No Family Medical History Any Significant Family History?: Yes Hx Heart Disease: Father Hx HTN: Mother Hx Seizures: Children Physical Exam - General General Appearance: Alert, Oriented x3, Cooperative, No acute distress - Head Head exam: Normal inspection - Eye Eye exam: Normal appearance, PERRL Pupils: Normal accommodation - ENT ENT exam: Normal exam, Mucous membranes moist, Normal external ear exam, Normal orophraynx, TM's normal bilaterally Ear exam: Normal external inspection. negative: External canal tenderness Nasal Exam: Normal inspection. negative: Discharge, Sinus tenderness Mouth exam: Normal external inspection, Tongue normal Teeth exam: Normal inspection. negative: Dental caries Throat exam: Normal inspection. negative: Tonsillar erythema, Tonsillar exudate - Neck Neck exam: Normal inspection, Full ROM. negative: Tenderness - Respiratory Respiratory exam: Normal lung sounds bilaterally. negative: Respiratory distress - Cardiovascular Cardiovascular Exam: Regular rate, Normal rhythm, Normal heart sounds - GI/Abdominal GI/Abdominal exam: Soft, Normal bowel sounds. negative: Tenderness - Rectal Rectal exam: Deferred - exam: Deferred - Extremities Extremities exam: Normal inspection, Full ROM, Normal capillary refill, Tenderness (left hip pain ) - Back Back exam: Reports: Normal inspection, Full ROM. Denies: Muscle spasm, Rash noted, Tenderness - Neurological Neurological exam: Alert, Normal gait, Oriented X3, Reflexes normal - Psychiatric Psychiatric exam: Normal affect, Normal mood - Skin Skin exam: Dry, Intact, Normal color, Warm Course Vital Signs 10/15/18 12:50 Temperature 97.9 F Pulse Rate 91 H Respiratory 20 Rate Blood Pressure 139/81 Pulse Ox 98 - Reevaluation(s) Reevaluation #1: patient unable to straighten legs out 10/15/18 14:03 Reevaluation #2: [facility] and she was looking into [facility] 10/15/18 15:37 Medical Decision Making - Data Complexity MDM Data: Labs Ordered and/or Reviewed, X-Ray Ordered and/or Reviewed (no fracture of the left hip or pelvis) - Lab Data Result diagrams: 10/15/18 14:09 10/15/18 14:09 Disposition Clinical Impression: Strain of hip Qualifiers: Encounter type: initial encounter Laterality: left Qualified Code(s): S76.012A - Strain of muscle, fascia and tendon of left hip, initial encounter Osteoarthritis of left hip Qualifiers: Osteoarthritis type: primary Qualified Code(s): M16.12 - Unilateral primary osteoarthritis, left hip Disposition: Home, Self-Care Condition: (1) Good Instructions: Hip Sprain (ED) Additional Instructions: follow up with visiting physicians in 1-2 weeks tylenol 2 pills three times a day or motrin OTC 3 pills three times a day patient has [facility] Forms: Patient Portal Access Time of Disposition: 15:31 Quality - Quality Measures Quality Measures: N/A - Blood Pressure Screening Does Patient Have Any of the Following: No Blood Pressure Classification: Pre-Hypertensive BP Reading Systolic Measurement: 139 Diastolic Measurement: 81 Screening for High Blood Pressure: < Pre-Hypertensive BP, F/U Documented > [G8950] Pre-Hypertensive Follow-up Interventions: Referral to alternative/primary care provider.
[2018-10-15] MEDS ORDERED: 0.9 % SODIUM CHLORIDE 500ML 500 ML IV SCH (13:45)
[2018-10-15] MEDS ORDERED: KETOROLAC 30 MG/ML VIAL IVP ONE (14:01)
[2018-10-15 14:20] LABS: ABSOLUTE NEUTROPHIL COUNT 7.95; BASO % 0.2 % (0-6); EOS % 0.2 % (0-6); GRAN % 75.3 % (47-80); HEMATOCRIT 46.8 % (42.0-52.0); HEMOGLOBIN 15.5 gm/dl (14.0-18.0); LYMPH % 13.8 % (16-45); MEAN CELL VOLUME 99.4 fl (81-97); MEAN CORPUSCULAR HEMOGLOBIN 32.9 pg (27-33); MEAN CORPUSCULAR HGB CONC 33.1 g/dl (32-36); MEAN PLATELET VOLUME 8.5 fl (7.4-10.4); MONO % 10.5 % (0-9); PLATELET COUNT 359 K/uL (130-400); RED BLOOD COUNT 4.71 M/uL (4.40-5.70); RED CELL DISTRIBUTION WIDTH 12.9 % (11.5-14.5); WHITE BLOOD COUNT W/O DIFF 10.6 K/uL (4.2-12.2)
[2018-10-15 14:30] LABS: BLOOD UREA NITROGEN 35 mg/dL (8-23); CREATININE 0.8 mg/dL (0.7-1.2); EST GLOMERULAR FILTRATION RATE > 60 mL/min
[2018-10-15 14:32] LABS: GLUCOSE,RANDOM 113 mg/dL (74-109)
== END 2018-10-15 16:13 | disposition home or self-care (01) ==
LOC: ER 12:48
DX: S76.012A Strain of muscle, fascia and tendon of left hip, initial encounter (principal); R53.1 Weakness; M16.12 Unilateral primary osteoarthritis, left hip; M79.662 Pain in left lower leg; G20 Parkinson's disease; X58.XXXA Exposure to other specified factors, initial encounter; Y92.009 Unspecified place in unspecified non-institutional (private) residence as the place of occurrence of the external cause
CPT/HCPCS: 72190; 80048; 85025; 86140; 96374; 99284; J1885; J7040